=== PATIENT | female | born 1945 | race Caucasian/White ===

== ENCOUNTER 2018-10-15 13:42 | Inpatient (IN) | payer MEDICARE, MEDICAID ==
[2018-10-15] MEDS ORDERED: DICLOFENAC SODIUM TOP PRN (20:53)
[2018-10-15] MEDS ORDERED: Milk Of Magnesia 30 ML UDCUP PO PRN (20:53)
[2018-10-15] MEDS: Gemfibrozil 600 MG TAB PO SCH (21:48)
[2018-10-15] MEDS: Lidocaine Patch Removal 1 EACH TOP SCH (21:49)
[2018-10-15] MEDS: metFORMIN 500 MG TAB PO SCH (21:49)
[2018-10-15] MEDS: Montelukast Sodium 10 mg Tablet PO SCH (21:50)
[2018-10-15] MEDS: Ventolin HFA Inhaler 60 PUFF INHALER INH SCH (21:50)
[2018-10-15] MEDS: Docusate 100 MG CAP PO SCH (21:50)
[2018-10-15] MEDS: HYDROcodone/Acetaminophen 7.5/325 mg Tablet PO SCH (21:52)
[2018-10-15] MEDS: Nicotine 21 MG PATCH TD SCH (22:00)
[2018-10-15] MEDS: Temazepam 15 MG CAP PO SCH (22:54)
[2018-10-16] MEDS: Lidocaine 5% Patch TD SCH (08:24)
[2018-10-16] MEDS: Gemfibrozil 600 MG TAB PO SCH ×2 (08:25→20:19)
[2018-10-16] MEDS: HYDROcodone/Acetaminophen 7.5/325 mg Tablet PO SCH ×2 (08:25→20:22)
[2018-10-16] MEDS: metFORMIN 500 MG TAB PO SCH ×2 (08:25→20:21)
[2018-10-16] MEDS: Furosemide 20 MG TAB PO SCH (08:25)
[2018-10-16] MEDS: Levothyroxine Sodium 25 MCG TAB PO SCH (08:25)
[2018-10-16] MEDS: Docusate 100 MG CAP PO SCH ×2 (08:25→20:19)
[2018-10-16] MEDS: Potassium Chloride 20 MEQ TAB PO SCH (08:25)
[2018-10-16] MEDS: Ventolin HFA Inhaler 60 PUFF INHALER INH SCH ×4 (08:27→20:23)
[2018-10-16] MEDS ORDERED: Prevnar 13-Val Conj/PF 0.5 ML SYRINGE IM ONE (09:00)
[2018-10-16] MEDS ORDERED: Bisacodyl 10 MG SUPP PR PRN (12:00)
[2018-10-16] MEDS: Ondansetron ODT 4 MG TAB PO PRN (12:08)
[2018-10-16] MEDS: Lidocaine Patch Removal 1 EACH TOP SCH (20:21)
[2018-10-16] MEDS: Montelukast Sodium 10 mg Tablet PO SCH (20:22)
[2018-10-16] MEDS: Temazepam 15 MG CAP PO SCH (20:29)
[2018-10-16] MEDS: Nicotine 21 MG PATCH TD SCH (20:29)
--- NOTE | 2018-10-17 02:13 | HP ---
PRIMARY CARE PHYSICIAN: Out of town. REASON FOR ADMISSION: For skilled rehabilitation at [facility] secondary to gait instability, status post left superior and inferior pubic rami fracture. HISTORY OF PRESENT ILLNESS: Ms. Cano is a 73-year-old very pleasant female who presented to [facility] in [place] on October 12 due to a fall coming out of a trailer. Since then, the patient had complained of left hip pain with a pain scale of 10/10, nonradiating and worse with movement. The patient had left hip x-rays, which did not show any fracture or dislocation. She had x-ray of spine, which did not show any fracture or old subluxation. The patient subsequently had a CT of the pelvis and that confirmed fractures to the left superior and inferior pubic rami. The patient was subsequently evaluated by orthopedic surgeon, Dr. Arora, who confirmed the nondisplaced fractures of the superior and inferior pubic rami. He states the fractures were stable and did not require surgery. The patient was evaluated by Physical Therapy and the decision was made to continue physical therapy, and the patient was subsequently discharged to [facility] for continuation of this. Upon evaluation of the patient today, she complains of pain. She states the pain is well controlled by the tramadol, the hydrocodone, and the Tylenol No. 3. The patient complains of constipation and states she has not had a bowel movement since she has been in the hospital since the . She complains of being very nauseous today. She denied any fevers and also she denies any recent falls. The patient was able to participate in therapy and tolerated this okay. PAST MEDICAL HISTORY: Hypertension, diabetes, and hypothyroidism. PAST SURGICAL HISTORY: Left hip replacement in the . SOCIAL HISTORY: Smokes two packs of cigarettes per day. Denies alcohol or illicit drug use. CODE STATUS: The patient is a DNAR. ALLERGIES: NO KNOWN DRUG ALLERGIES. MEDICATIONS: 1. Tramadol 50 to 100 q.6 p.r.n. 2. Dulcolax 10 mg daily. 3. Colace 100 mg b.i.d. 4. Nicotine patch 21 mg daily. 5. Milk of magnesia 30 mL daily. 6. Lidoderm patch 5% patch daily. 7. Metformin 500 b.i.d. 8. Levothyroxine 25 mcg. 9. [place] 1 to 2 tabs daily. 10. Lasix 20 mg daily. 11. Xanax 0.5 b.i.d. 12. ProAir 2 puffs 4 times a day as needed. 13. Montelukast 10 mg at bedtime. 14. Potassium chloride 20 mEq daily. 15. Vistaril 50 mg at bedtime. 16. Omeprazole 40 mg daily. REVIEW OF SYSTEMS: GENERAL: Complains of pain to the hip. Denies any fever or chills. Complains of nausea. Complains of constipation. HEENT: No nosebleeds, oral pain, vision changes, or dysphagia. CHEST: Denies chest pain, shortness of breath, palpitations, or dizziness. RESPIRATORY: Denies cough, shortness of breath, or wheezing. ABDOMEN: Complains of nausea, vomiting, and constipation. GENITOURINARY: Denies dysuria or hematuria. SKIN: Denies blisters. NEUROLOGIC: No focal deficits. PSYCHIATRY: No depression or anxiety. MUSCULOSKELETAL: Complains of gait instability and left hip pain. PHYSICAL EXAMINATION: VITAL SIGNS: Temperature 98.8, pulse 77, respirations 18, O2 on room air 91%, and blood pressure 161/70. GENERAL: Alert, awake, and oriented x3, in mild distress due to pain and nausea. HEENT: Normocephalic and atraumatic. PERRL. Anicteric sclerae. Oral mucous membranes are moist. NECK: Supple. No JVD. Trachea is midline. RESPIRATORY: Clear to auscultation bilaterally. HEART : S1 and S2 heard. No murmurs heard. Pulses palpable. No carotid bruits. No pericardial rub. ABDOMEN: Positive bowel sounds. Soft, nontender, and nondistended. NEUROLOGIC: Cranial nerves 2 through 12 are grossly intact. MUSCULOSKELETAL: Limited range of movements of the left hip secondary to pain. Tenderness over the left hip. No bruising, redness, or swelling. SKIN: No rashes or subcutaneous nodules. PSYCHIATRIC: Normal mood and affect. Alert and oriented to person, place, and time. ASSESSMENT: 1. Gait instability. 2. Status post left superior and inferior pubic rami fracture. 3. Diabetes type 2. 4. Constipation. 5. Nausea. 6. Acute pain. 7. Hypothyroidism. PLAN: The patient has been admitted to [facility] for skilled rehabilitation and gait strengthening. We will consult Physical Therapy for strengthening in order to gain modified independence with gait and Occupational Therapy to help with activities of daily living. The patient is to follow up with orthopedic doctor in a month. We will manage her pain with [place] b.i.d. and tramadol as needed. We will control her anxiety with the home medication, Xanax. We will place patient on stool softener p.r.n. and Colace twice a day. We will restart all patient's home medications. We will place patient on Pepcid b.i.d. for GI prophylaxis. We will place patient on Accu-Cheks a.m. We will place patient on fall precautions. ESTIMATED LENGTH OF STAY: Two to three weeks. DISPOSITION: Home. Job ID: [id number] MTDD
[2018-10-17] MEDS: Furosemide 20 MG TAB PO SCH (08:12)
[2018-10-17] MEDS: Gemfibrozil 600 MG TAB PO SCH ×2 (08:13→20:04)
[2018-10-17] MEDS: HYDROcodone/Acetaminophen 7.5/325 mg Tablet PO SCH ×2 (08:13→20:14)
[2018-10-17] MEDS: Potassium Chloride 20 MEQ TAB PO SCH (08:13)
[2018-10-17] MEDS: metFORMIN 500 MG TAB PO SCH ×2 (08:13→20:04)
[2018-10-17] MEDS: Docusate 100 MG CAP PO SCH ×2 (08:13→20:04)
[2018-10-17] MEDS: Levothyroxine Sodium 25 MCG TAB PO SCH (08:13)
[2018-10-17] MEDS: Lidocaine 5% Patch TD SCH (08:13)
[2018-10-17] MEDS: Ventolin HFA Inhaler 60 PUFF INHALER INH SCH ×4 (08:14→20:16)
[2018-10-17] MEDS: Enoxaparin Sodium 30 MG/0.3 ML SYRINGE SC SCH (08:14)
[2018-10-17] MEDS: traMADol HCl 50 MG TAB PO PRN (13:23)
[2018-10-17] MEDS ORDERED: Nicotine 21 MG PATCH TD SCH (13:45)
[2018-10-17] MEDS: Montelukast Sodium 10 mg Tablet PO SCH (20:04)
[2018-10-17] MEDS: Temazepam 15 MG CAP PO SCH (20:04)
[2018-10-17] MEDS: Nicotine 21 MG PATCH TD SCH (20:13)
[2018-10-17] MEDS: Lidocaine Patch Removal 1 EACH TOP SCH (20:13)
[2018-10-17] MEDS: ALPRAZolam 0.5 MG TAB PO PRN (20:20)
[2018-10-18] MEDS: traMADol HCl 50 MG TAB PO PRN ×2 (01:36→16:47)
[2018-10-18] MEDS: HYDROcodone/Acetaminophen 7.5/325 mg Tablet PO SCH ×2 (08:35→20:06)
[2018-10-18] MEDS: Ondansetron ODT 4 MG TAB PO PRN ×2 (08:38→19:27)
[2018-10-18] MEDS: Lidocaine 5% Patch TD SCH (08:39)
[2018-10-18] MEDS: Potassium Chloride 20 MEQ TAB PO SCH (08:39)
[2018-10-18] MEDS: Levothyroxine Sodium 25 MCG TAB PO SCH (08:39)
[2018-10-18] MEDS: Gemfibrozil 600 MG TAB PO SCH ×2 (08:39→20:06)
[2018-10-18] MEDS: Enoxaparin Sodium 30 MG/0.3 ML SYRINGE SC SCH (08:39)
[2018-10-18] MEDS: Furosemide 20 MG TAB PO SCH (08:39)
[2018-10-18] MEDS: metFORMIN 500 MG TAB PO SCH ×2 (08:39→20:08)
[2018-10-18] MEDS: Docusate 100 MG CAP PO SCH ×2 (08:39→20:06)
[2018-10-18] MEDS: Ventolin HFA Inhaler 60 PUFF INHALER INH SCH ×4 (08:40→20:09)
[2018-10-18] MEDS: Temazepam 15 MG CAP PO SCH (20:08)
[2018-10-18] MEDS: Montelukast Sodium 10 mg Tablet PO SCH (20:08)
[2018-10-18] MEDS: Nicotine 21 MG PATCH TD SCH (20:08)
[2018-10-18] MEDS: Lidocaine Patch Removal 1 EACH TOP SCH (20:13)
[2018-10-19] MEDS: traMADol HCl 50 MG TAB PO PRN (05:46)
[2018-10-19] MEDS: Docusate 100 MG CAP PO SCH ×2 (08:33→20:03)
[2018-10-19] MEDS: Furosemide 20 MG TAB PO SCH (08:33)
[2018-10-19] MEDS: Enoxaparin Sodium 30 MG/0.3 ML SYRINGE SC SCH (08:33)
[2018-10-19] MEDS: Gemfibrozil 600 MG TAB PO SCH ×2 (08:34→20:03)
[2018-10-19] MEDS: HYDROcodone/Acetaminophen 7.5/325 mg Tablet PO SCH ×2 (08:34→20:03)
[2018-10-19] MEDS: Lidocaine 5% Patch TD SCH (08:35)
[2018-10-19] MEDS: Levothyroxine Sodium 25 MCG TAB PO SCH (08:35)
[2018-10-19] MEDS: metFORMIN 500 MG TAB PO SCH ×2 (08:35→20:04)
[2018-10-19] MEDS: Potassium Chloride 20 MEQ TAB PO SCH (08:36)
[2018-10-19] MEDS: Ventolin HFA Inhaler 60 PUFF INHALER INH SCH ×4 (08:37→20:05)
[2018-10-19] MEDS: Montelukast Sodium 10 mg Tablet PO SCH (20:04)
[2018-10-19] MEDS: Lidocaine Patch Removal 1 EACH TOP SCH (20:04)
[2018-10-19] MEDS: Senokot S 8.6-50 MG TAB PO PRN (20:05)
[2018-10-19] MEDS: Nicotine 21 MG PATCH TD SCH (20:05)
[2018-10-19] MEDS: Temazepam 15 MG CAP PO SCH (20:05)
[2018-10-20] MEDS: traMADol HCl 50 MG TAB PO PRN ×2 (04:07→13:21)
[2018-10-20] MEDS: Lidocaine 5% Patch TD SCH (08:51)
[2018-10-20] MEDS: HYDROcodone/Acetaminophen 7.5/325 mg Tablet PO SCH ×2 (08:51→20:02)
[2018-10-20] MEDS: Potassium Chloride 20 MEQ TAB PO SCH (08:54)
[2018-10-20] MEDS: Furosemide 20 MG TAB PO SCH (08:54)
[2018-10-20] MEDS: Bisacodyl 5 MG TAB PO PRN (08:54)
[2018-10-20] MEDS: metFORMIN 500 MG TAB PO SCH ×2 (08:54→20:01)
[2018-10-20] MEDS: Docusate 100 MG CAP PO SCH ×2 (08:54→20:00)
[2018-10-20] MEDS: Gemfibrozil 600 MG TAB PO SCH ×2 (08:54→20:01)
[2018-10-20] MEDS: Levothyroxine Sodium 25 MCG TAB PO SCH (08:54)
[2018-10-20] MEDS: Enoxaparin Sodium 30 MG/0.3 ML SYRINGE SC SCH (08:54)
[2018-10-20] MEDS: Ventolin HFA Inhaler 60 PUFF INHALER INH SCH ×4 (08:55→20:03)
[2018-10-20] MEDS: Montelukast Sodium 10 mg Tablet PO SCH (20:00)
[2018-10-20] MEDS: Nicotine 21 MG PATCH TD SCH (20:00)
[2018-10-20] MEDS: Temazepam 15 MG CAP PO SCH (20:02)
[2018-10-20] MEDS: Lidocaine Patch Removal 1 EACH TOP SCH (20:03)
[2018-10-21] MEDS: traMADol HCl 50 MG TAB PO PRN ×2 (02:04→10:54)
[2018-10-21] MEDS: Docusate 100 MG CAP PO SCH ×2 (08:16→20:39)
[2018-10-21] MEDS: Enoxaparin Sodium 30 MG/0.3 ML SYRINGE SC SCH (08:16)
[2018-10-21] MEDS: Potassium Chloride 20 MEQ TAB PO SCH (08:16)
[2018-10-21] MEDS: Bisacodyl 5 MG TAB PO PRN (08:17)
[2018-10-21] MEDS: Furosemide 20 MG TAB PO SCH (08:17)
[2018-10-21] MEDS: metFORMIN 500 MG TAB PO SCH ×2 (08:17→20:39)
[2018-10-21] MEDS: Levothyroxine Sodium 25 MCG TAB PO SCH (08:17)
[2018-10-21] MEDS: Lidocaine 5% Patch TD SCH (08:17)
[2018-10-21] MEDS: Gemfibrozil 600 MG TAB PO SCH ×2 (08:17→20:39)
[2018-10-21] MEDS: Ventolin HFA Inhaler 60 PUFF INHALER INH SCH ×4 (08:18→20:41)
[2018-10-21] MEDS: HYDROcodone/Acetaminophen 7.5/325 mg Tablet PO SCH (08:24)
[2018-10-21] MEDS: Nicotine 21 MG PATCH TD SCH (20:38)
[2018-10-21] MEDS: Temazepam 15 MG CAP PO SCH (20:39)
[2018-10-21] MEDS: HYDROcodone/Acetaminophen 10/325 mg Tablet PO SCH (20:40)
[2018-10-21] MEDS: Montelukast Sodium 10 mg Tablet PO SCH (20:40)
[2018-10-21] MEDS: Lidocaine Patch Removal 1 EACH TOP SCH (20:41)
[2018-10-22] MEDS: traMADol HCl 50 MG TAB PO PRN (03:33)
[2018-10-22] MEDS: Gemfibrozil 600 MG TAB PO SCH ×2 (08:09→19:59)
[2018-10-22] MEDS: HYDROcodone/Acetaminophen 10/325 mg Tablet PO SCH ×2 (08:09→19:59)
[2018-10-22] MEDS: metFORMIN 500 MG TAB PO SCH ×2 (08:09→19:59)
[2018-10-22] MEDS: Furosemide 20 MG TAB PO SCH (08:09)
[2018-10-22] MEDS: Docusate 100 MG CAP PO SCH ×2 (08:09→19:59)
[2018-10-22] MEDS: Levothyroxine Sodium 25 MCG TAB PO SCH (08:10)
[2018-10-22] MEDS: Enoxaparin Sodium 30 MG/0.3 ML SYRINGE SC SCH (08:10)
[2018-10-22] MEDS: Ventolin HFA Inhaler 60 PUFF INHALER INH SCH ×4 (08:10→20:01)
[2018-10-22] MEDS: Lidocaine 5% Patch TD SCH (08:10)
[2018-10-22] MEDS: Potassium Chloride 20 MEQ TAB PO SCH (08:10)
[2018-10-22] MEDS: Temazepam 15 MG CAP PO SCH (19:59)
[2018-10-22] MEDS: Nicotine 21 MG PATCH TD SCH (19:59)
[2018-10-22] MEDS: Lidocaine Patch Removal 1 EACH TOP SCH (20:00)
[2018-10-22] MEDS: Montelukast Sodium 10 mg Tablet PO SCH (20:00)
[2018-10-23] MEDS: traMADol HCl 50 MG TAB PO PRN ×2 (04:00→13:25)
[2018-10-23] MEDS: Ventolin HFA Inhaler 60 PUFF INHALER INH SCH ×4 (08:45→20:11)
[2018-10-23] MEDS: Potassium Chloride 20 MEQ TAB PO SCH (08:46)
[2018-10-23] MEDS: Furosemide 20 MG TAB PO SCH (08:46)
[2018-10-23] MEDS: Docusate 100 MG CAP PO SCH ×2 (08:46→20:13)
[2018-10-23] MEDS: Senokot S 8.6-50 MG TAB PO PRN (08:46)
[2018-10-23] MEDS: HYDROcodone/Acetaminophen 10/325 mg Tablet PO SCH ×2 (08:46→20:14)
[2018-10-23] MEDS: Gemfibrozil 600 MG TAB PO SCH ×2 (08:47→20:14)
[2018-10-23] MEDS: Levothyroxine Sodium 25 MCG TAB PO SCH (08:47)
[2018-10-23] MEDS: Lidocaine 5% Patch TD SCH (08:48)
[2018-10-23] MEDS: Enoxaparin Sodium 30 MG/0.3 ML SYRINGE SC SCH (08:51)
[2018-10-23] MEDS: metFORMIN 500 MG TAB PO SCH ×2 (08:52→20:14)
[2018-10-23] MEDS: Montelukast Sodium 10 mg Tablet PO SCH (20:14)
[2018-10-23] MEDS: Temazepam 15 MG CAP PO SCH (20:14)
[2018-10-23] MEDS: Nicotine 21 MG PATCH TD SCH (20:20)
[2018-10-23] MEDS: Lidocaine Patch Removal 1 EACH TOP SCH (20:20)
[2018-10-24] MEDS: Ventolin HFA Inhaler 60 PUFF INHALER INH SCH ×4 (08:07→20:04)
[2018-10-24] MEDS: Docusate 100 MG CAP PO SCH ×2 (08:07→20:06)
[2018-10-24] MEDS: Potassium Chloride 20 MEQ TAB PO SCH (08:08)
[2018-10-24] MEDS: metFORMIN 500 MG TAB PO SCH ×2 (08:08→20:06)
[2018-10-24] MEDS: HYDROcodone/Acetaminophen 10/325 mg Tablet PO SCH ×2 (08:08→20:08)
[2018-10-24] MEDS: Gemfibrozil 600 MG TAB PO SCH ×2 (08:08→20:06)
[2018-10-24] MEDS: Levothyroxine Sodium 25 MCG TAB PO SCH (08:08)
[2018-10-24] MEDS: Furosemide 20 MG TAB PO SCH (08:08)
[2018-10-24] MEDS: Lidocaine 5% Patch TD SCH (08:09)
[2018-10-24] MEDS: Enoxaparin Sodium 30 MG/0.3 ML SYRINGE SC SCH (08:09)
[2018-10-24] MEDS ORDERED: CONFIRM ALL DAY 1 DOSES ARE TIMED FOR DAY 1 FS SCH (09:15)
[2018-10-24 09:56] LABS: ALT (SGPT) 7 U/L (8-55); AST (SGOT) 12 U/L (5-34); Albumin 3.6 g/dL (3.4-4.8); Alkaline Phosphatase 104 U/L (40-150); Anion Gap 13 mmol/L (10-20); BUN (Urea Nitrogen) 6 mg/dL (9.8-20.1); Bilirubin, Total 0.4 mg/dL (0.2-1.2); Calc. Creatinine Clearance 85 mL/min (70-130); Calcium 9.9 mg/dL (7.8-10.44); Carbon Dioxide 26 mmol/L (23-31); Chloride 97 mmol/L (98-107); Estimated GFR-MDRD Greater than 90; Globulin 3.9 g/dL (2.4-3.5); Glucose 122 mg/dL (83-110); Potassium 3.5 mmol/L (3.5-5.1); Protein, Total 7.5 g/dL (6.0-8.3); Sodium 132 mmol/L (136-145); Uric Acid 4.5 mg/dL (2.6-6.0)
[2018-10-24] MEDS: methylPREDNISolone 4 mg Tablet PO SCH ×4 (10:08→20:06)
[2018-10-24 10:16] LABS: #Basophils 0.1 thou/uL (0.0-0.2); #Eosinphils 0.1 thou/uL (0.0-0.7); #Lymphocytes 1.4 thou/uL (1.20-3.40); #Monocytes 0.9 thou/uL (0.11-0.59); #Neutrophils 5.9 thou/uL (1.40-6.50); %Basophils 1.5 % (0.0-1.0); %Eosinophils 0.8 % (0.0-10.0); %Lymphocytes 16.3 % (21.0-51.0); %Monocytes 10.9 % (0.0-10.0); %Neutrophils 70.6 % (42.0-75.0); Anisocytosis SLIGHT = 6-15 cells (100X) (0-5/hpf); Hemoglobin 9.6 g/dL (12.0-16.0); MDiff Complete? YES; Mean Corpuscular HGB CONC 32.1 g/dL (32.0-36.0); Mean Corpuscular Hemoglobin 29.6 pg (27.0-31.0); Mean Corpuscular Volume 92.3 fL (78.0-98.0); Mean Platelet Volume 5.8 fL (7.4-10.4); Platelet Count 504 thou/uL (130-400); RBC Distribution Width 20.3 % (11.5-14.5); Red Blood Cell (RBC) Count 3.24 mill/uL (4.20-5.40); White Blood Cell (WBC) Count 8.4 thou/uL (4.8-10.8)
[2018-10-24] MEDS: traMADol HCl 50 MG TAB PO PRN (12:07)
--- NOTE | 2018-10-24 14:39 | RAD ---
RIGHT ANKLE THREE VIEWS: HISTORY: Red, swollen, painful right ankle and foot. FINDINGS: There is generalized soft tissue swelling. There is very severe arthrosis with deformity and flatteni ng of the talar dome, as well as the subarticular region of the distal tibia, evidence for longstandi ng arthrosis and resultant deformity. This certainly may be evidence for prior trauma. No evidence for acute fracture or dislocation. Subtalar joints appear intact. IMPRESSION: 1. 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 2. No acute fracture or dislocation. POS: Jose
[2018-10-24] MEDS: Nicotine 21 MG PATCH TD SCH (20:03)
[2018-10-24] MEDS: Montelukast Sodium 10 mg Tablet PO SCH (20:06)
[2018-10-24] MEDS: Temazepam 15 MG CAP PO SCH (20:07)
[2018-10-24] MEDS: Lidocaine Patch Removal 1 EACH TOP SCH (20:12)
[2018-10-25] MEDS: HYDROcodone/Acetaminophen 10/325 mg Tablet PO SCH ×2 (08:29→21:02)
[2018-10-25] MEDS: Docusate 100 MG CAP PO SCH ×2 (08:29→21:02)
[2018-10-25] MEDS: Levothyroxine Sodium 25 MCG TAB PO SCH (08:30)
[2018-10-25] MEDS: Gemfibrozil 600 MG TAB PO SCH ×2 (08:30→21:02)
[2018-10-25] MEDS: Potassium Chloride 20 MEQ TAB PO SCH (08:30)
[2018-10-25] MEDS: methylPREDNISolone 4 mg Tablet PO SCH ×3 (08:30→17:10)
[2018-10-25] MEDS: metFORMIN 500 MG TAB PO SCH ×2 (08:30→21:03)
[2018-10-25] MEDS: Furosemide 20 MG TAB PO SCH (08:30)
[2018-10-25] MEDS: Lidocaine 5% Patch TD SCH (08:31)
[2018-10-25] MEDS: Ventolin HFA Inhaler 60 PUFF INHALER INH SCH ×4 (08:31→21:05)
[2018-10-25] MEDS: Enoxaparin Sodium 30 MG/0.3 ML SYRINGE SC SCH (08:34)
[2018-10-25] MEDS: traMADol HCl 50 MG TAB PO PRN (13:15)
[2018-10-25] MEDS ORDERED: methylPREDNISolone 4 mg Tablet PO SCH (21:00)
[2018-10-25] MEDS: Nicotine 21 MG PATCH TD SCH (21:01)
[2018-10-25] MEDS: Lidocaine Patch Removal 1 EACH TOP SCH (21:03)
[2018-10-25] MEDS: Montelukast Sodium 10 mg Tablet PO SCH (21:04)
[2018-10-25] MEDS: Temazepam 15 MG CAP PO SCH (21:05)
[2018-10-26] MEDS: metFORMIN 500 MG TAB PO SCH ×2 (08:15→21:08)
[2018-10-26] MEDS: Potassium Chloride 20 MEQ TAB PO SCH (08:16)
[2018-10-26] MEDS: Enoxaparin Sodium 30 MG/0.3 ML SYRINGE SC SCH (08:16)
[2018-10-26] MEDS: methylPREDNISolone 4 mg Tablet PO SCH ×4 (08:16→21:08)
[2018-10-26] MEDS: Levothyroxine Sodium 25 MCG TAB PO SCH (08:16)
[2018-10-26] MEDS: Docusate 100 MG CAP PO SCH ×2 (08:16→21:06)
[2018-10-26] MEDS: Furosemide 20 MG TAB PO SCH (08:16)
[2018-10-26] MEDS: HYDROcodone/Acetaminophen 10/325 mg Tablet PO SCH ×2 (08:17→21:07)
[2018-10-26] MEDS: Gemfibrozil 600 MG TAB PO SCH ×2 (08:17→21:06)
[2018-10-26] MEDS: Lidocaine 5% Patch TD SCH (08:18)
[2018-10-26] MEDS: Ventolin HFA Inhaler 60 PUFF INHALER INH SCH ×4 (08:18→21:09)
[2018-10-26] MEDS: Nicotine 21 MG PATCH TD SCH (21:05)
[2018-10-26] MEDS: Temazepam 15 MG CAP PO SCH (21:08)
[2018-10-26] MEDS: Montelukast Sodium 10 mg Tablet PO SCH (21:08)
[2018-10-26] MEDS: Lidocaine Patch Removal 1 EACH TOP SCH (21:08)
[2018-10-27] MEDS: Potassium Chloride 20 MEQ TAB PO SCH (08:25)
[2018-10-27] MEDS: Furosemide 20 MG TAB PO SCH (08:25)
[2018-10-27] MEDS: Gemfibrozil 600 MG TAB PO SCH ×2 (08:25→20:57)
[2018-10-27] MEDS: HYDROcodone/Acetaminophen 10/325 mg Tablet PO SCH ×2 (08:25→20:57)
[2018-10-27] MEDS: metFORMIN 500 MG TAB PO SCH ×2 (08:26→20:56)
[2018-10-27] MEDS: Lidocaine 5% Patch TD SCH (08:26)
[2018-10-27] MEDS: methylPREDNISolone 4 mg Tablet PO SCH ×3 (08:26→17:06)
[2018-10-27] MEDS: Levothyroxine Sodium 25 MCG TAB PO SCH (08:26)
[2018-10-27] MEDS: Enoxaparin Sodium 30 MG/0.3 ML SYRINGE SC SCH (08:26)
[2018-10-27] MEDS: Ventolin HFA Inhaler 60 PUFF INHALER INH SCH ×4 (08:27→21:03)
[2018-10-27] MEDS: Docusate 100 MG CAP PO SCH ×2 (08:27→20:56)
[2018-10-27] MEDS: traMADol HCl 50 MG TAB PO PRN (19:29)
[2018-10-27] MEDS: Montelukast Sodium 10 mg Tablet PO SCH (20:58)
[2018-10-27] MEDS: Nicotine 21 MG PATCH TD SCH (20:59)
[2018-10-27] MEDS: Lidocaine Patch Removal 1 EACH TOP SCH (20:59)
[2018-10-27] MEDS: Temazepam 15 MG CAP PO SCH (21:03)
[2018-10-28] MEDS: traMADol HCl 50 MG TAB PO PRN ×3 (03:02→17:32)
[2018-10-28] MEDS: HYDROcodone/Acetaminophen 10/325 mg Tablet PO SCH ×2 (08:27→19:59)
[2018-10-28] MEDS: Docusate 100 MG CAP PO SCH ×2 (08:27→20:00)
[2018-10-28] MEDS: methylPREDNISolone 4 mg Tablet PO SCH ×2 (08:27→17:29)
[2018-10-28] MEDS: Levothyroxine Sodium 25 MCG TAB PO SCH (08:27)
[2018-10-28] MEDS: metFORMIN 500 MG TAB PO SCH ×2 (08:28→20:00)
[2018-10-28] MEDS: Furosemide 20 MG TAB PO SCH (08:28)
[2018-10-28] MEDS: Gemfibrozil 600 MG TAB PO SCH ×2 (08:28→20:00)
[2018-10-28] MEDS: Enoxaparin Sodium 30 MG/0.3 ML SYRINGE SC SCH (08:28)
[2018-10-28] MEDS: Ventolin HFA Inhaler 60 PUFF INHALER INH SCH ×4 (08:28→20:01)
[2018-10-28] MEDS: Potassium Chloride 20 MEQ TAB PO SCH (08:28)
[2018-10-28] MEDS: Lidocaine 5% Patch TD SCH (08:29)
[2018-10-28 13:05] LABS: #Basophils 0.2 thou/uL (0.0-0.2); #Eosinphils 0.2 thou/uL (0.0-0.7); #Monocytes 1.1 thou/uL (0.11-0.59); #Neutrophils 4.9 thou/uL (1.40-6.50); %Basophils 1.7 % (0.0-1.0); %Eosinophils 2.3 % (0.0-10.0); %Lymphocytes 32.3 % (21.0-51.0); %Monocytes 11.8 % (0.0-10.0); %Neutrophils 51.9 % (42.0-75.0); Anisocytosis SLIGHT = 6-15 cells (100X) (0-5/hpf); Hemoglobin 10.3 g/dL (12.0-16.0); MDiff Complete? YES; Mean Corpuscular HGB CONC 31.5 g/dL (32.0-36.0); Mean Corpuscular Hemoglobin 29.2 pg (27.0-31.0); Mean Corpuscular Volume 92.8 fL (78.0-98.0); Mean Platelet Volume 5.5 fL (7.4-10.4); Platelet Count 723 thou/uL (130-400); Polychromasia SLIGHT = 2-3 cells (100X) (0-2/hpf); RBC Distribution Width 20.2 % (11.5-14.5); Red Blood Cell (RBC) Count 3.54 mill/uL (4.20-5.40); White Blood Cell (WBC) Count 9.4 thou/uL (4.8-10.8)
[2018-10-28] MEDS: Temazepam 15 MG CAP PO SCH (19:59)
[2018-10-28] MEDS: Nicotine 21 MG PATCH TD SCH (20:00)
[2018-10-28] MEDS: Montelukast Sodium 10 mg Tablet PO SCH (20:00)
[2018-10-28] MEDS: Lidocaine Patch Removal 1 EACH TOP SCH (20:01)
[2018-10-29] MEDS: traMADol HCl 50 MG TAB PO PRN ×2 (03:33→13:59)
[2018-10-29] MEDS ORDERED: methylPREDNISolone 4 mg Tablet PO SCH (08:00)
[2018-10-29] MEDS: HYDROcodone/Acetaminophen 10/325 mg Tablet PO SCH ×2 (09:02→21:34)
[2018-10-29] MEDS: Docusate 100 MG CAP PO SCH ×2 (09:02→21:33)
[2018-10-29] MEDS: Furosemide 20 MG TAB PO SCH (09:02)
[2018-10-29] MEDS: Gemfibrozil 600 MG TAB PO SCH ×2 (09:02→21:33)
[2018-10-29] MEDS: Levothyroxine Sodium 25 MCG TAB PO SCH (09:03)
[2018-10-29] MEDS: Potassium Chloride 20 MEQ TAB PO SCH (09:03)
[2018-10-29] MEDS: metFORMIN 500 MG TAB PO SCH ×2 (09:03→21:33)
[2018-10-29] MEDS: Lidocaine 5% Patch TD SCH (09:03)
[2018-10-29] MEDS: Ventolin HFA Inhaler 60 PUFF INHALER INH SCH ×4 (09:04→21:32)
[2018-10-29] MEDS: Nicotine 21 MG PATCH TD SCH (21:32)
[2018-10-29] MEDS: Montelukast Sodium 10 mg Tablet PO SCH (21:34)
[2018-10-29] MEDS: Temazepam 15 MG CAP PO SCH (21:35)
[2018-10-29] MEDS: Lidocaine Patch Removal 1 EACH TOP SCH (21:37)
[2018-10-30 05:29] LABS: Anion Gap 11 mmol/L (10-20); BUN (Urea Nitrogen) 10 mg/dL (9.8-20.1); Calc. Creatinine Clearance 89 mL/min (70-130); Calcium 9.1 mg/dL (7.8-10.44); Carbon Dioxide 27 mmol/L (23-31); Chloride 102 mmol/L (98-107); Estimated GFR-MDRD Greater than 90; Glucose 75 mg/dL (83-110); Potassium 4.1 mmol/L (3.5-5.1); Sodium 136 mmol/L (136-145)
[2018-10-30] MEDS: traMADol HCl 50 MG TAB PO PRN (05:41)
[2018-10-30 05:47] LABS: #Basophils 0.2 thou/uL (0.0-0.2); #Eosinphils 0.3 thou/uL (0.0-0.7); #Lymphocytes 3.6 thou/uL (1.20-3.40); #Monocytes 1.2 thou/uL (0.11-0.59); #Neutrophils 3.9 thou/uL (1.40-6.50); %Eosinophils 3.7 % (0.0-10.0); %Lymphocytes 39.3 % (21.0-51.0); %Monocytes 13.3 % (0.0-10.0); %Neutrophils 41.8 % (42.0-75.0); Anisocytosis SLIGHT = 6-15 cells (100X) (0-5/hpf); Hemoglobin 9.7 g/dL (12.0-16.0); Hypochromia MODERATE=16-30 cells (100X) (0-5/hpf); MDiff Complete? YES; Mean Corpuscular HGB CONC 32.4 g/dL (32.0-36.0); Mean Corpuscular Hemoglobin 29.6 pg (27.0-31.0); Mean Corpuscular Volume 91.3 fL (78.0-98.0); Mean Platelet Volume 5.8 fL (7.4-10.4); Microcytosis SLIGHT = 6-15 cells (100X) (0-5/hpf); Platelet Count 584 thou/uL (130-400); Poikilocytosis SLIGHT = 6-15 cells (100X) (0-5/hpf); RBC Distribution Width 20.3 % (11.5-14.5); Red Blood Cell (RBC) Count 3.28 mill/uL (4.20-5.40)
[2018-10-30] MEDS: Docusate 100 MG CAP PO SCH ×2 (08:02→20:50)
[2018-10-30] MEDS: Levothyroxine Sodium 25 MCG TAB PO SCH (08:02)
[2018-10-30] MEDS: Lidocaine 5% Patch TD SCH ×2 (08:02→20:52)
[2018-10-30] MEDS: metFORMIN 500 MG TAB PO SCH ×2 (08:02→20:51)
[2018-10-30] MEDS: HYDROcodone/Acetaminophen 10/325 mg Tablet PO SCH ×2 (08:02→20:49)
[2018-10-30] MEDS: Potassium Chloride 20 MEQ TAB PO SCH (08:03)
[2018-10-30] MEDS: Gemfibrozil 600 MG TAB PO SCH ×2 (08:03→20:48)
[2018-10-30] MEDS: Furosemide 20 MG TAB PO SCH (08:03)
[2018-10-30] MEDS: Ventolin HFA Inhaler 60 PUFF INHALER INH SCH ×4 (08:03→20:44)
[2018-10-30] MEDS: Nicotine 21 MG PATCH TD SCH (20:42)
[2018-10-30] MEDS: Montelukast Sodium 10 mg Tablet PO SCH (20:45)
[2018-10-30] MEDS: Temazepam 15 MG CAP PO SCH (20:48)
[2018-10-31] MEDS: HYDROcodone/Acetaminophen 10/325 mg Tablet PO SCH ×2 (08:04→21:17)
[2018-10-31] MEDS: Potassium Chloride 20 MEQ TAB PO SCH (08:05)
[2018-10-31] MEDS: Gemfibrozil 600 MG TAB PO SCH ×2 (08:05→21:17)
[2018-10-31] MEDS: Levothyroxine Sodium 25 MCG TAB PO SCH (08:05)
[2018-10-31] MEDS: Docusate 100 MG CAP PO SCH ×2 (08:05→21:17)
[2018-10-31] MEDS: Furosemide 20 MG TAB PO SCH (08:05)
[2018-10-31] MEDS: metFORMIN 500 MG TAB PO SCH ×2 (08:05→21:20)
[2018-10-31] MEDS: Ventolin HFA Inhaler 60 PUFF INHALER INH SCH ×4 (08:06→21:18)
[2018-10-31] MEDS: Lidocaine Patch Removal 1 EACH TOP SCH (08:06)
[2018-10-31] MEDS: traMADol HCl 50 MG TAB PO PRN (13:45)
[2018-10-31] MEDS: Nicotine 21 MG PATCH TD SCH (21:19)
[2018-10-31] MEDS: Montelukast Sodium 10 mg Tablet PO SCH (21:20)
[2018-10-31] MEDS: Temazepam 15 MG CAP PO SCH (21:20)
[2018-10-31] MEDS: Lidocaine 5% Patch TD SCH (21:21)
[2018-11-01] MEDS: HYDROcodone/Acetaminophen 10/325 mg Tablet PO SCH ×2 (08:07→20:13)
[2018-11-01] MEDS: Docusate 100 MG CAP PO SCH ×2 (08:07→20:15)
[2018-11-01] MEDS: Gemfibrozil 600 MG TAB PO SCH ×2 (08:07→20:15)
[2018-11-01] MEDS: Furosemide 20 MG TAB PO SCH (08:07)
[2018-11-01] MEDS: Lidocaine Patch Removal 1 EACH TOP SCH (08:08)
[2018-11-01] MEDS: metFORMIN 500 MG TAB PO SCH ×2 (08:08→20:15)
[2018-11-01] MEDS: Potassium Chloride 20 MEQ TAB PO SCH (08:08)
[2018-11-01] MEDS: Levothyroxine Sodium 25 MCG TAB PO SCH (08:08)
[2018-11-01] MEDS: Ventolin HFA Inhaler 60 PUFF INHALER INH SCH ×4 (08:09→20:16)
[2018-11-01] MEDS ORDERED: Lisinopril 5 MG TAB PO SCH (11:00)
[2018-11-01 12:58] LABS: #Basophils 0.1 thou/uL (0.0-0.2); #Eosinphils 0.1 thou/uL (0.0-0.7); #Lymphocytes 2.5 thou/uL (1.20-3.40); #Monocytes 1.2 thou/uL (0.11-0.59); #Neutrophils 4.9 thou/uL (1.40-6.50); %Basophils 1.3 % (0.0-1.0); %Eosinophils 1.3 % (0.0-10.0); %Lymphocytes 28.4 % (21.0-51.0); %Monocytes 13.9 % (0.0-10.0); %Neutrophils 55.2 % (42.0-75.0); Anisocytosis SLIGHT = 6-15 cells (100X) (0-5/hpf); Hemoglobin 10.6 g/dL (12.0-16.0); Hypochromia SLIGHT = 6-15 cells (100X) (0-5/hpf); MDiff Complete? YES; Mean Corpuscular HGB CONC 32.1 g/dL (32.0-36.0); Mean Corpuscular Hemoglobin 29.6 pg (27.0-31.0); Mean Corpuscular Volume 92.3 fL (78.0-98.0); Mean Platelet Volume 6.1 fL (7.4-10.4); Platelet Count 533 thou/uL (130-400); Platelet Morphology Comment Appears Increased; RBC Distribution Width 20.4 % (11.5-14.5); Red Blood Cell (RBC) Count 3.57 mill/uL (4.20-5.40); Rouleaux Formation SLIGHT = 1-5 cells (100X) (None Seen); White Blood Cell (WBC) Count 8.8 thou/uL (4.8-10.8)
[2018-11-01] MEDS: traMADol HCl 50 MG TAB PO PRN (17:43)
[2018-11-01] MEDS ORDERED: ALPRAZolam 0.5 MG TAB ONE (20:12)
[2018-11-01] MEDS: Temazepam 15 MG CAP PO SCH (20:13)
[2018-11-01] MEDS: Lidocaine 5% Patch TD SCH (20:14)
[2018-11-01] MEDS: Montelukast Sodium 10 mg Tablet PO SCH (20:15)
[2018-11-01] MEDS: Nicotine 21 MG PATCH TD SCH (20:15)
[2018-11-02] MEDS: HYDROcodone/Acetaminophen 10/325 mg Tablet PO SCH ×2 (08:08→20:07)
[2018-11-02] MEDS: Potassium Chloride 20 MEQ TAB PO SCH (08:08)
[2018-11-02] MEDS: Docusate 100 MG CAP PO SCH ×2 (08:09→20:08)
[2018-11-02] MEDS: metFORMIN 500 MG TAB PO SCH ×2 (08:09→20:08)
[2018-11-02] MEDS: Lisinopril 5 MG TAB PO SCH (08:09)
[2018-11-02] MEDS: Gemfibrozil 600 MG TAB PO SCH ×2 (08:09→20:09)
[2018-11-02] MEDS: Furosemide 20 MG TAB PO SCH (08:09)
[2018-11-02] MEDS: Levothyroxine Sodium 25 MCG TAB PO SCH (08:09)
[2018-11-02] MEDS: Ventolin HFA Inhaler 60 PUFF INHALER INH SCH ×4 (08:11→20:09)
[2018-11-02] MEDS: Lidocaine Patch Removal 1 EACH TOP SCH (08:11)
[2018-11-02] MEDS: traMADol HCl 50 MG TAB PO PRN (13:10)
[2018-11-02] MEDS: Temazepam 15 MG CAP PO SCH (20:07)
[2018-11-02] MEDS: ALPRAZolam 0.5 MG TAB PO PRN (20:07)
[2018-11-02] MEDS: Montelukast Sodium 10 mg Tablet PO SCH (20:08)
[2018-11-02] MEDS: Nicotine 21 MG PATCH TD SCH (20:08)
[2018-11-02] MEDS: Lidocaine 5% Patch TD SCH (20:08)
[2018-11-03] MEDS: HYDROcodone/Acetaminophen 10/325 mg Tablet PO SCH ×2 (09:19→19:59)
[2018-11-03] MEDS: Levothyroxine Sodium 25 MCG TAB PO SCH (09:21)
[2018-11-03] MEDS: Potassium Chloride 20 MEQ TAB PO SCH (09:21)
[2018-11-03] MEDS: Lisinopril 5 MG TAB PO SCH (09:21)
[2018-11-03] MEDS: Gemfibrozil 600 MG TAB PO SCH ×2 (09:21→20:03)
[2018-11-03] MEDS: Ventolin HFA Inhaler 60 PUFF INHALER INH SCH ×4 (09:22→20:02)
[2018-11-03] MEDS: Docusate 100 MG CAP PO SCH ×2 (09:22→20:03)
[2018-11-03] MEDS: Lidocaine Patch Removal 1 EACH TOP SCH (09:22)
[2018-11-03] MEDS: metFORMIN 500 MG TAB PO SCH ×2 (09:22→20:03)
[2018-11-03] MEDS: Furosemide 20 MG TAB PO SCH (09:22)
[2018-11-03] MEDS: traMADol HCl 50 MG TAB PO PRN (13:01)
[2018-11-03] MEDS: Temazepam 15 MG CAP PO SCH (19:59)
[2018-11-03] MEDS: Nicotine 21 MG PATCH TD SCH (20:00)
[2018-11-03] MEDS: Lidocaine 5% Patch TD SCH (20:01)
[2018-11-03] MEDS: Montelukast Sodium 10 mg Tablet PO SCH (20:03)
[2018-11-03] MEDS: ALPRAZolam 0.5 MG TAB PO PRN (20:04)
[2018-11-04] MEDS: HYDROcodone/Acetaminophen 10/325 mg Tablet PO SCH ×2 (09:42→20:15)
[2018-11-04] MEDS: metFORMIN 500 MG TAB PO SCH ×2 (09:44→20:16)
[2018-11-04] MEDS: Docusate 100 MG CAP PO SCH ×2 (09:44→20:14)
[2018-11-04] MEDS: Gemfibrozil 600 MG TAB PO SCH ×2 (09:44→20:15)
[2018-11-04] MEDS: Lisinopril 5 MG TAB PO SCH (09:44)
[2018-11-04] MEDS: Furosemide 20 MG TAB PO SCH (09:44)
[2018-11-04] MEDS: Levothyroxine Sodium 25 MCG TAB PO SCH (09:45)
[2018-11-04] MEDS: Potassium Chloride 20 MEQ TAB PO SCH (09:45)
[2018-11-04] MEDS: Ventolin HFA Inhaler 60 PUFF INHALER INH SCH ×4 (09:45→20:13)
[2018-11-04] MEDS: Lidocaine Patch Removal 1 EACH TOP SCH (09:45)
[2018-11-04] MEDS: traMADol HCl 50 MG TAB PO PRN (14:13)
[2018-11-04] MEDS: Lidocaine 5% Patch TD SCH (20:12)
[2018-11-04] MEDS: Nicotine 21 MG PATCH TD SCH (20:16)
[2018-11-04] MEDS: Montelukast Sodium 10 mg Tablet PO SCH (20:16)
[2018-11-04] MEDS: Temazepam 15 MG CAP PO SCH (20:16)
[2018-11-05] MEDS: Docusate 100 MG CAP PO SCH ×2 (08:14→20:37)
[2018-11-05] MEDS: metFORMIN 500 MG TAB PO SCH ×2 (08:14→20:37)
[2018-11-05] MEDS: Potassium Chloride 20 MEQ TAB PO SCH (08:14)
[2018-11-05] MEDS: HYDROcodone/Acetaminophen 10/325 mg Tablet PO SCH ×2 (08:14→20:35)
[2018-11-05] MEDS: Furosemide 20 MG TAB PO SCH (08:14)
[2018-11-05] MEDS: Lidocaine Patch Removal 1 EACH TOP SCH (08:15)
[2018-11-05] MEDS: Levothyroxine Sodium 25 MCG TAB PO SCH (08:15)
[2018-11-05] MEDS: Gemfibrozil 600 MG TAB PO SCH ×2 (08:15→20:37)
[2018-11-05] MEDS: Ventolin HFA Inhaler 60 PUFF INHALER INH SCH ×4 (08:15→20:38)
[2018-11-05] MEDS: Lisinopril 5 MG TAB PO SCH (08:15)
[2018-11-05 13:59] LABS: #Basophils 0.1 thou/uL (0.0-0.2); #Eosinphils 0.1 thou/uL (0.0-0.7); #Lymphocytes 2.4 thou/uL (1.20-3.40); #Monocytes 0.8 thou/uL (0.11-0.59); #Neutrophils 4.1 thou/uL (1.40-6.50); %Basophils 1.5 % (0.0-1.0); %Eosinophils 1.7 % (0.0-10.0); %Lymphocytes 32.1 % (21.0-51.0); %Monocytes 10.1 % (0.0-10.0); %Neutrophils 54.6 % (42.0-75.0); Anisocytosis SLIGHT = 6-15 cells (100X) (0-5/hpf); MDiff Complete? YES; Mean Corpuscular Hemoglobin 28.9 pg (27.0-31.0); Mean Corpuscular Volume 90.6 fL (78.0-98.0); Mean Platelet Volume 6.8 fL (7.4-10.4); Platelet Count 423 thou/uL (130-400); Platelet Morphology Comment Appears Increased; RBC Distribution Width 20.3 % (11.5-14.5); Red Blood Cell (RBC) Count 3.46 mill/uL (4.20-5.40); Rouleaux Formation SLIGHT = 1-5 cells (100X) (None Seen); White Blood Cell (WBC) Count 7.5 thou/uL (4.8-10.8)
[2018-11-05] MEDS: Temazepam 15 MG CAP PO SCH (20:35)
[2018-11-05] MEDS: Lidocaine 5% Patch TD SCH (20:36)
[2018-11-05] MEDS: Montelukast Sodium 10 mg Tablet PO SCH (20:37)
[2018-11-05] MEDS: Nicotine 21 MG PATCH TD SCH (20:37)
[2018-11-06] MEDS: Lisinopril 5 MG TAB PO SCH (08:16)
[2018-11-06] MEDS: Gemfibrozil 600 MG TAB PO SCH ×2 (08:16→20:38)
[2018-11-06] MEDS: Levothyroxine Sodium 25 MCG TAB PO SCH (08:16)
[2018-11-06] MEDS: Potassium Chloride 20 MEQ TAB PO SCH (08:16)
[2018-11-06] MEDS: Furosemide 20 MG TAB PO SCH (08:16)
[2018-11-06] MEDS: metFORMIN 500 MG TAB PO SCH ×2 (08:16→20:39)
[2018-11-06] MEDS: HYDROcodone/Acetaminophen 10/325 mg Tablet PO SCH ×2 (08:16→20:38)
[2018-11-06] MEDS: Docusate 100 MG CAP PO SCH ×2 (08:16→20:38)
[2018-11-06] MEDS: Ventolin HFA Inhaler 60 PUFF INHALER INH SCH ×4 (08:17→20:40)
[2018-11-06] MEDS: Lidocaine Patch Removal 1 EACH TOP SCH (08:17)
[2018-11-06] MEDS: Montelukast Sodium 10 mg Tablet PO SCH (20:39)
[2018-11-06] MEDS: Lidocaine 5% Patch TD SCH (20:39)
[2018-11-06] MEDS: Nicotine 21 MG PATCH TD SCH (20:40)
[2018-11-06] MEDS: Temazepam 15 MG CAP PO SCH (20:40)
[2018-11-06] MEDS: ALPRAZolam 0.5 MG TAB PO PRN (20:43)
[2018-11-07] MEDS: Lisinopril 5 MG TAB PO SCH (08:09)
[2018-11-07] MEDS: Furosemide 20 MG TAB PO SCH (08:10)
[2018-11-07] MEDS: HYDROcodone/Acetaminophen 10/325 mg Tablet PO SCH ×2 (08:10→20:14)
[2018-11-07] MEDS: metFORMIN 500 MG TAB PO SCH ×2 (08:10→20:13)
[2018-11-07] MEDS: Levothyroxine Sodium 25 MCG TAB PO SCH (08:11)
[2018-11-07] MEDS: Docusate 100 MG CAP PO SCH ×2 (08:11→20:13)
[2018-11-07] MEDS: Gemfibrozil 600 MG TAB PO SCH ×2 (08:11→21:00)
[2018-11-07] MEDS: Potassium Chloride 20 MEQ TAB PO SCH (08:11)
[2018-11-07] MEDS: Lidocaine Patch Removal 1 EACH TOP SCH (08:12)
[2018-11-07] MEDS: Ventolin HFA Inhaler 60 PUFF INHALER INH SCH ×4 (08:14→20:15)
[2018-11-07] MEDS: Nicotine 21 MG PATCH TD SCH (10:48)
[2018-11-07] MEDS: traMADol HCl 50 MG TAB PO PRN (14:19)
[2018-11-07] MEDS: Lidocaine 5% Patch TD SCH (20:13)
[2018-11-07] MEDS: Montelukast Sodium 10 mg Tablet PO SCH (20:15)
[2018-11-07] MEDS: Temazepam 15 MG CAP PO SCH (20:15)
[2018-11-08] MEDS: Furosemide 20 MG TAB PO SCH (08:20)
[2018-11-08] MEDS: HYDROcodone/Acetaminophen 10/325 mg Tablet PO SCH ×2 (08:20→20:28)
[2018-11-08] MEDS: Ventolin HFA Inhaler 60 PUFF INHALER INH SCH ×4 (08:20→20:31)
[2018-11-08] MEDS: Lisinopril 5 MG TAB PO SCH (08:20)
[2018-11-08] MEDS: Levothyroxine Sodium 25 MCG TAB PO SCH (08:20)
[2018-11-08] MEDS: Lidocaine Patch Removal 1 EACH TOP SCH (08:21)
[2018-11-08] MEDS: Potassium Chloride 20 MEQ TAB PO SCH (08:21)
[2018-11-08] MEDS: metFORMIN 500 MG TAB PO SCH ×2 (08:21→20:30)
[2018-11-08] MEDS: Docusate 100 MG CAP PO SCH ×2 (08:21→20:28)
[2018-11-08] MEDS: Gemfibrozil 600 MG TAB PO SCH ×2 (08:21→20:28)
[2018-11-08 09:36] LABS: #Basophils 0.1 thou/uL (0.0-0.2); #Eosinphils 0.1 thou/uL (0.0-0.7); #Lymphocytes 2.1 thou/uL (1.20-3.40); #Monocytes 0.7 thou/uL (0.11-0.59); #Neutrophils 2.6 thou/uL (1.40-6.50); %Basophils 2.5 % (0.0-1.0); %Eosinophils 2.6 % (0.0-10.0); %Lymphocytes 36.4 % (21.0-51.0); %Neutrophils 46.4 % (42.0-75.0); Hemoglobin 9.9 g/dL (12.0-16.0); Mean Corpuscular HGB CONC 32.5 g/dL (32.0-36.0); Mean Corpuscular Hemoglobin 29.3 pg (27.0-31.0); Mean Corpuscular Volume 90.4 fL (78.0-98.0); Mean Platelet Volume 6.1 fL (7.4-10.4); Platelet Count 401 thou/uL (130-400); RBC Distribution Width 20.1 % (11.5-14.5); Red Blood Cell (RBC) Count 3.37 mill/uL (4.20-5.40); White Blood Cell (WBC) Count 5.7 thou/uL (4.8-10.8)
[2018-11-08 09:37] LABS: Anisocytosis SLIGHT = 6-15 cells (100X) (0-5/hpf); MDiff Complete? YES
[2018-11-08] MEDS: Nicotine 21 MG PATCH TD SCH (10:21)
[2018-11-08] MEDS: Lidocaine 5% Patch TD SCH (20:29)
[2018-11-08] MEDS: Temazepam 15 MG CAP PO SCH (20:30)
[2018-11-08] MEDS: Montelukast Sodium 10 mg Tablet PO SCH (20:30)
[2018-11-09] MEDS: Furosemide 20 MG TAB PO SCH (08:28)
[2018-11-09] MEDS: Docusate 100 MG CAP PO SCH ×2 (08:28→20:40)
[2018-11-09] MEDS: Gemfibrozil 600 MG TAB PO SCH ×2 (08:28→20:40)
[2018-11-09] MEDS: Lisinopril 5 MG TAB PO SCH (08:28)
[2018-11-09] MEDS: HYDROcodone/Acetaminophen 10/325 mg Tablet PO SCH ×2 (08:29→20:40)
[2018-11-09] MEDS: Potassium Chloride 20 MEQ TAB PO SCH (08:29)
[2018-11-09] MEDS: metFORMIN 500 MG TAB PO SCH ×2 (08:29→20:41)
[2018-11-09] MEDS: Levothyroxine Sodium 25 MCG TAB PO SCH (08:29)
[2018-11-09] MEDS: Lidocaine Patch Removal 1 EACH TOP SCH (08:30)
[2018-11-09] MEDS: Ventolin HFA Inhaler 60 PUFF INHALER INH SCH ×4 (08:32→21:24)
[2018-11-09] MEDS: Nicotine 21 MG PATCH TD SCH (11:38)
[2018-11-09] MEDS: traMADol HCl 50 MG TAB PO PRN (18:04)
[2018-11-09] MEDS: Temazepam 15 MG CAP PO SCH (20:41)
[2018-11-09] MEDS: Lidocaine 5% Patch TD SCH (20:41)
[2018-11-09] MEDS: Montelukast Sodium 10 mg Tablet PO SCH (20:41)
[2018-11-10] MEDS: HYDROcodone/Acetaminophen 10/325 mg Tablet PO SCH ×2 (08:08→20:52)
[2018-11-10] MEDS: Potassium Chloride 20 MEQ TAB PO SCH (08:08)
[2018-11-10] MEDS: metFORMIN 500 MG TAB PO SCH ×2 (08:08→20:53)
[2018-11-10] MEDS: Docusate 100 MG CAP PO SCH ×2 (08:08→20:51)
[2018-11-10] MEDS: Lidocaine Patch Removal 1 EACH TOP SCH (08:09)
[2018-11-10] MEDS: Levothyroxine Sodium 25 MCG TAB PO SCH (08:09)
[2018-11-10] MEDS: Lisinopril 5 MG TAB PO SCH (08:09)
[2018-11-10] MEDS: Gemfibrozil 600 MG TAB PO SCH ×2 (08:09→20:51)
[2018-11-10] MEDS: Furosemide 20 MG TAB PO SCH (08:09)
[2018-11-10] MEDS: Ventolin HFA Inhaler 60 PUFF INHALER INH SCH ×4 (08:10→20:51)
[2018-11-10] MEDS: Nicotine 21 MG PATCH TD SCH (10:53)
[2018-11-10] MEDS: traMADol HCl 50 MG TAB PO PRN (14:41)
[2018-11-10] MEDS: Montelukast Sodium 10 mg Tablet PO SCH (20:53)
[2018-11-10] MEDS: Lidocaine 5% Patch TD SCH (20:53)
[2018-11-10] MEDS: Temazepam 15 MG CAP PO SCH (20:54)
[2018-11-11] MEDS: Docusate 100 MG CAP PO SCH (08:13)
[2018-11-11] MEDS: Potassium Chloride 20 MEQ TAB PO SCH (08:13)
[2018-11-11] MEDS: HYDROcodone/Acetaminophen 10/325 mg Tablet PO SCH (08:13)
[2018-11-11] MEDS: Lisinopril 5 MG TAB PO SCH (08:13)
[2018-11-11] MEDS: Gemfibrozil 600 MG TAB PO SCH (08:13)
[2018-11-11] MEDS: Furosemide 20 MG TAB PO SCH (08:14)
[2018-11-11] MEDS: metFORMIN 500 MG TAB PO SCH (08:14)
[2018-11-11] MEDS: Lidocaine Patch Removal 1 EACH TOP SCH (08:14)
[2018-11-11] MEDS: Levothyroxine Sodium 25 MCG TAB PO SCH (08:14)
[2018-11-11] MEDS: Ventolin HFA Inhaler 60 PUFF INHALER INH SCH ×3 (08:14→17:26)
[2018-11-11 08:56] VITALS: BP 143/63; TEMP 97
[2018-11-11] MEDS: Nicotine 21 MG PATCH TD SCH (11:25)
--- NOTE | 2018-11-11 14:57 | DIS ---
DATE OF ADMISSION: 10/15/2018 DATE OF DISCHARGE: 11/11/2018 PRIMARY CARE PHYSICIAN: Iván Jeffery MD DISCHARGE PHYSICIAN: Eddie Abdul MD DISCHARGE DISPOSITION: Home with family members. [facility] to start physical therapy and occupational therapy. DISCHARGE DIAGNOSES: 1. Gait instability, much improved. 2. Status post left superior and inferior rami fracture, improved. 3. Diabetes type 2, well controlled. 4. Hypertension. 5. Hypothyroidism. 6. Constipation. DISCHARGE MEDICATIONS: 1. Tramadol 50 q.6h p.r.n. 2. Dulcolax 10 daily. 3. Colace 100 b.i.d. 4. Lidocaine 5% patch daily. 5. Metformin 500 b.i.d. 6. Lisinopril 5 mg daily. 7. Levothyroxine 25 mcg daily. 8. Metformin 500 b.i.d. 9. Milk of magnesia 30 mL daily. 10. [place] 1 to 2 tabs b.i.d. 11. Lasix 20 daily. 12. Xanax 0.5 b.i.d. 13. Montelukast 10 daily. 14. Potassium chloride 20 mEq daily. 15. Vistaril 50 at bedtime. 16. Omeprazole 40 daily. 17. ProAir 2 puffs 4 times a day p.r.n. BRIEF HOSPITAL COURSE: Ms. Cano is a 73-year-old female, who sustained a fall at home on October 12, x-ray did not show any fractures, but the CT of the pelvis confirmed left superior and inferior rami fracture. The decision was made after evaluation by Orthopedic doctor, Dr. Arora, that the patient did not require surgery and just physical therapy. The patient was subsequently admitted to [facility] on 15 October 2018, for skilled rehabilitation. Initially, the patient was not very willing to participate in physical therapy, but she was encouraged and progressively improved. During hospitalization, the patient's stay was complicated by a right ankle swelling and pain. Testing was done for gout and any fractures and all negative. The patient states she does have joint pain and swelling occasionally due to arthritis. The patient was treated with a 6-day Medrol Saulo and this improved significantly. The patient during the hospitalization, was also noted to have some elevated blood pressure, and lisinopril 5 mg was added to her medication regimen and she tolerated this nicely. The patient progressively improved with physical therapy and due to moving to a new home, she did have a day pass to go see how she would do in the new home, and the patient tolerated this well. She was very excited to go home and the patient on day of discharge, was able to walk 175 feet using a rolling walker. She passed physical therapy. She has met some of our goals and gait, balance, strength, and transfers looked significantly improved. The patient was discharged home on the in a stable condition. Script was written for rolling walker, wheelchair, and a shower chair. The patient was advised to follow up with her primary care doctor within 1 week. [facility] to start occupational and physical therapy per the patient's request. Discharge vital signs; temperature 97.0, blood pressure 127/78, pulse 72, respiration 18, O2 saturation 96% on room air. This patient is a DNR. Job ID: [id number] [facility]
[2018-11-11 17:45] VITALS: BMI 24.3
== END 2018-11-11 19:07 | disposition home health service (06) | DRG 561 ==
LOC: MADMS 18:13
PROVIDERS: ADMIT Family Medicine; ATTEND Family Medicine
DX: S32.592D Other specified fracture of left pubis, subsequent encounter for fracture with routine healing (principal); I10 Essential (primary) hypertension; E11.9 Type 2 diabetes mellitus without complications; Z66 Do not resuscitate; E03.9 Hypothyroidism, unspecified; K59.00 Constipation, unspecified; R26.89 Other abnormalities of gait and mobility; R11.0 Nausea; R52 Pain, unspecified; M19.90 Unspecified osteoarthritis, unspecified site; F17.210 Nicotine dependence, cigarettes, uncomplicated; Z96.642 Presence of left artificial hip joint; Z79.84 Long term (current) use of oral hypoglycemic drugs; V89.9XXD Person injured in unspecified vehicle accident, subsequent encounter
CPT/HCPCS: 36415; 36416; 80048; 80053; 84550; 85025; J1650; Q0162

== ENCOUNTER 2018-12-27 17:10 | Emergency (ER) | payer MEDICAID, MEDICARE ==
[2018-12-27] MEDS ORDERED: Ketorolac Tromethamine 30 MG/ML VIAL ONE (17:39)
[2018-12-27] MEDS ORDERED: Pantoprazole 40 MG VIAL ONE (17:39)
--- NOTE | 2018-12-27 18:01 | RAD ---
XR Lumbar Spine 2 Or 3 View: 12/27/2018 5:28 PM CLINICAL INDICATION: Pain COMPARISON: 10/11/2018 FINDINGS: Fracture:Interval mild superior endplate height loss of L2 and L3. Arthropathy:Moderate multilevel degenerative change Incidental findings: Within left hemipelvis, adjacent partially imaged left hip hardware, there is mendes bacute fracture deformity of the left superior pubic ramus and left inferior pubic ramus, as indicated by callus formation. Vascular calcification IMPRESSION: 1. Interval mild compression fractures of L2 and L3. Correlate clinically. 2. Subacute left hemipelvic fractures.
== END 2018-12-27 18:48 | disposition home or self-care (01) ==
LOC: MADERS 17:10
DX: S32.029A Unspecified fracture of second lumbar vertebra, initial encounter for closed fracture (principal); S32.039A Unspecified fracture of third lumbar vertebra, initial encounter for closed fracture; I10 Essential (primary) hypertension; R73.03 Prediabetes; F17.210 Nicotine dependence, cigarettes, uncomplicated; Z79.891 Long term (current) use of opiate analgesic; Z79.899 Other long term (current) drug therapy; W19.XXXA Unspecified fall, initial encounter; Z79.51 Long term (current) use of inhaled steroids
CPT/HCPCS: 72100; 96374; 96375; C9113; J1885

== ENCOUNTER 2019-07-01 12:17 | Outpatient (CLI) | payer MEDICARE, OTHER ==
--- NOTE | 2019-07-01 12:38 | RAD ---
2 view chest: [07/01/2019 Comparison:01/07/2019 HISTORY: Acute bronchitis FINDINGS: Heart and mediastinal contours are stable. Diffuse increased linear interstitial density wi th pulmonary hyperinflation noted, suggesting COPD in the proper clinical setting. There is a horizontally oriented linear area of increased density within the anterior clear space on the lateral examination which may represent scar or volume loss. This probably correlates with a linear area of density within the infrahilar region on the right. IMPRESSION: Interstitial prominence and pulmonary hyperinflation as described above. Horizontally stephanie ented linear density in the right perihilar region anteriorly suggests scarring and/or volume loss. Recommend PA and lateral follow-up imaging to document resolution in 4-6 weeks. CODE T
== END 2019-07-01 12:18 | disposition home or self-care (01) ==
LOC: MADRAD 12:17
PROVIDERS: ATTEND Family Medicine
DX: J20.9 Acute bronchitis, unspecified (principal); R05 Cough; R91.8 Other nonspecific abnormal finding of lung field; J98.4 Other disorders of lung
CPT/HCPCS: 71046

== ENCOUNTER 2021-09-28 16:52 | Inpatient (IN) | payer MEDICARE, MEDICAID ==
[2021-09-28] MEDS ORDERED: Temazepam 15 MG CAP PER TUBE PRN (18:19)
[2021-09-28] MEDS ORDERED: HYDROcodone/Acetaminophen 7.5/325 mg Tablet PER TUBE PRN (18:19)
[2021-09-28] MEDS ORDERED: ALPRAZolam 0.5 MG TAB PO PRN (18:19)
[2021-09-28] MEDS ORDERED: Nicotine 7 MG PATCH TD SCH (18:30)
[2021-09-28] MEDS: metFORMIN 500 MG TAB PER TUBE SCH (21:53)
[2021-09-28] MEDS: Amiodarone 200 MG TAB PER TUBE SCH (21:53)
[2021-09-28] MEDS: Atorvastatin Calcium 40 MG TAB PER TUBE SCH (21:53)
[2021-09-29 05:40] LABS: #Basophils 0.2 thou/uL (0.0-0.2); #Eosinphils 0.2 thou/uL (0.0-0.7); #Lymphocytes 1.4 thou/uL (1.20-3.40); #Monocytes 1.1 thou/uL (0.11-0.59); #Neutrophils 9.2 thou/uL (1.40-6.50); %Basophils 1.4 % (0.0-1.0); %Eosinophils 1.5 % (0.0-10.0); %Lymphocytes 11.3 % (21.0-51.0); %Monocytes 8.9 % (0.0-10.0); %Neutrophils 76.9 % (42.0-75.0); Anisocytosis SLIGHT = 6-15 cells (100X) (0-5/hpf); Hemoglobin 8.1 g/dL (12.0-16.0); Hypochromia SLIGHT = 6-15 cells (100X) (0-5/hpf); MDiff Complete? YES; Macrocytosis SLIGHT = 6-15 cells (100X) (0-5/hpf); Mean Corpuscular HGB CONC 28.9 g/dL (32.0-36.0); Mean Corpuscular Hemoglobin 29.3 pg (27.0-31.0); Mean Corpuscular Volume 101.6 fL (78.0-98.0); Mean Platelet Volume 9.1 fL (7.4-10.4); Platelet Count 368 thou/uL (130-400); Platelet Morphology Comment Appears Adequate; RBC Distribution Width 22.6 % (11.5-14.5); Red Blood Cell (RBC) Count 2.75 mill/uL (4.20-5.40); Target Cells SLIGHT = 2-5 cells (100X) (0-1/hpf)
[2021-09-29 05:51] LABS: ALT (SGPT) 13 U/L (8-55); AST (SGOT) 22 U/L (5-34); Albumin 3.1 g/dL (3.4-4.8); Alkaline Phosphatase 62 U/L (40-110); Anion Gap 17 mmol/L (10-20); BUN (Urea Nitrogen) 13 mg/dL (9.8-20.1); Bilirubin, Total 0.5 mg/dL (0.2-1.2); Calc. Creatinine Clearance 94 mL/min (70-130); Calcium 8.4 mg/dL (7.8-10.44); Carbon Dioxide 20 mmol/L (23-31); Chloride 103 mmol/L (98-107); Globulin 3.3 g/dL (2.4-3.5); Glucose 98 mg/dL (83-110); Potassium 4.5 mmol/L (3.5-5.1); Protein, Total 6.4 g/dL (5.8-8.1); Sodium 135 mmol/L (136-145)
[2021-09-29] MEDS: Levothyroxine Sodium 25 MCG TAB PER TUBE SCH (05:57)
[2021-09-29] MEDS: metFORMIN 500 MG TAB PER TUBE SCH ×2 (09:40→20:10)
[2021-09-29] MEDS: Amiodarone 200 MG TAB PER TUBE SCH ×2 (09:40→20:10)
[2021-09-29] MEDS: Aspirin 325 MG TAB PER TUBE SCH (09:40)
[2021-09-29] MEDS: Lisinopril 5 MG TAB PER TUBE SCH (09:40)
[2021-09-29] MEDS: Pantoprazole 40 MG GRANULES PACKET PER TUBE SCH (09:40)
[2021-09-29] MEDS: Amlodipine 5 MG TAB PER TUBE SCH (09:40)
[2021-09-29] MEDS: Furosemide 20 MG TAB PER TUBE SCH (09:40)
[2021-09-29] MEDS: Enoxaparin Sodium 40 MG/0.4 ML SYRINGE SC SCH (09:41)
[2021-09-29] MEDS: Atorvastatin Calcium 40 MG TAB PER TUBE SCH (20:10)
[2021-09-30] MEDS: Levothyroxine Sodium 25 MCG TAB PER TUBE SCH (05:28)
[2021-09-30] MEDS: Enoxaparin Sodium 40 MG/0.4 ML SYRINGE SC SCH (09:12)
[2021-09-30] MEDS: Pantoprazole 40 MG GRANULES PACKET PER TUBE SCH (09:13)
[2021-09-30] MEDS: Amiodarone 200 MG TAB PER TUBE SCH ×2 (09:13→20:27)
[2021-09-30] MEDS: Amlodipine 5 MG TAB PER TUBE SCH (09:13)
[2021-09-30] MEDS: metFORMIN 500 MG TAB PER TUBE SCH ×2 (09:14→20:27)
[2021-09-30] MEDS: Furosemide 20 MG TAB PER TUBE SCH (09:14)
[2021-09-30] MEDS: Lisinopril 5 MG TAB PER TUBE SCH (09:14)
[2021-09-30] MEDS: Aspirin 325 MG TAB PER TUBE SCH (09:14)
[2021-09-30] MEDS: Atorvastatin Calcium 40 MG TAB PER TUBE SCH (20:27)
[2021-10-01] MEDS: Levothyroxine Sodium 25 MCG TAB PER TUBE SCH (05:27)
[2021-10-01] MEDS: Enoxaparin Sodium 40 MG/0.4 ML SYRINGE SC SCH (09:55)
[2021-10-01] MEDS: Aspirin 325 MG TAB PER TUBE SCH (09:55)
[2021-10-01] MEDS: Amiodarone 200 MG TAB PER TUBE SCH ×2 (09:55→21:21)
[2021-10-01] MEDS: Lisinopril 5 MG TAB PER TUBE SCH (09:55)
[2021-10-01] MEDS: Amlodipine 5 MG TAB PER TUBE SCH (09:56)
[2021-10-01] MEDS: Pantoprazole 40 MG GRANULES PACKET PER TUBE SCH (09:56)
[2021-10-01] MEDS: metFORMIN 500 MG TAB PER TUBE SCH ×2 (09:56→21:21)
[2021-10-01] MEDS: Furosemide 20 MG TAB PER TUBE SCH (09:56)
[2021-10-01] MEDS: Atorvastatin Calcium 40 MG TAB PER TUBE SCH (21:16)
[2021-10-02] MEDS: Levothyroxine Sodium 25 MCG TAB PER TUBE SCH (06:04)
[2021-10-02] MEDS: Aspirin 325 MG TAB PER TUBE SCH (08:56)
[2021-10-02] MEDS: metFORMIN 500 MG TAB PER TUBE SCH ×2 (08:56→21:24)
[2021-10-02] MEDS: Furosemide 20 MG TAB PER TUBE SCH (08:56)
[2021-10-02] MEDS: Pantoprazole 40 MG GRANULES PACKET PER TUBE SCH (08:56)
[2021-10-02] MEDS: Amlodipine 5 MG TAB PER TUBE SCH (08:56)
[2021-10-02] MEDS: Amiodarone 200 MG TAB PER TUBE SCH ×2 (08:56→21:24)
[2021-10-02] MEDS: Lisinopril 5 MG TAB PER TUBE SCH (08:56)
[2021-10-02] MEDS: Enoxaparin Sodium 40 MG/0.4 ML SYRINGE SC SCH (08:57)
[2021-10-02] MEDS: Atorvastatin Calcium 40 MG TAB PER TUBE SCH (21:24)
[2021-10-03] MEDS: Levothyroxine Sodium 25 MCG TAB PER TUBE SCH (05:21)
[2021-10-03] MEDS: Amiodarone 200 MG TAB PER TUBE SCH ×2 (08:40→20:16)
[2021-10-03] MEDS: Enoxaparin Sodium 40 MG/0.4 ML SYRINGE SC SCH (08:40)
[2021-10-03] MEDS: Lisinopril 5 MG TAB PER TUBE SCH (08:40)
[2021-10-03] MEDS: metFORMIN 500 MG TAB PER TUBE SCH ×2 (08:41→20:16)
[2021-10-03] MEDS: Amlodipine 5 MG TAB PER TUBE SCH (08:41)
[2021-10-03] MEDS: Pantoprazole 40 MG GRANULES PACKET PER TUBE SCH (08:41)
[2021-10-03] MEDS: Furosemide 20 MG TAB PER TUBE SCH (08:41)
[2021-10-03] MEDS: Aspirin 325 MG TAB PER TUBE SCH (08:41)
[2021-10-03 14:39] LABS: SARS-CoV-2 PCR by NAA Not Detected (NotDetected)
[2021-10-03] MEDS: Atorvastatin Calcium 40 MG TAB PER TUBE SCH (20:16)
[2021-10-04] MEDS: Levothyroxine Sodium 25 MCG TAB PER TUBE SCH (05:18)
[2021-10-04] MEDS: Enoxaparin Sodium 40 MG/0.4 ML SYRINGE SC SCH (09:35)
[2021-10-04] MEDS: Lisinopril 5 MG TAB PER TUBE SCH (09:35)
[2021-10-04] MEDS: Acetaminophen 325 MG TAB PER TUBE PRN (09:35)
[2021-10-04] MEDS: Amlodipine 5 MG TAB PER TUBE SCH (09:35)
[2021-10-04] MEDS: metFORMIN 500 MG TAB PER TUBE SCH ×2 (09:36→21:30)
[2021-10-04] MEDS: Furosemide 20 MG TAB PER TUBE SCH (09:36)
[2021-10-04] MEDS: Pantoprazole 40 MG GRANULES PACKET PER TUBE SCH (09:36)
[2021-10-04] MEDS: Amiodarone 200 MG TAB PER TUBE SCH ×2 (09:36→21:30)
[2021-10-04] MEDS: Aspirin 325 MG TAB PER TUBE SCH (09:36)
[2021-10-04] MEDS: Atorvastatin Calcium 40 MG TAB PER TUBE SCH (21:30)
[2021-10-05] MEDS ORDERED: Lantiseptic Ointment 130 GM JAR TOP PRN (00:23)
[2021-10-05] MEDS: Levothyroxine Sodium 25 MCG TAB PER TUBE SCH (05:35)
[2021-10-05] MEDS: Amlodipine 5 MG TAB PER TUBE SCH (09:45)
[2021-10-05] MEDS: Aspirin 325 MG TAB PER TUBE SCH (09:45)
[2021-10-05] MEDS: Enoxaparin Sodium 40 MG/0.4 ML SYRINGE SC SCH (09:45)
[2021-10-05] MEDS: metFORMIN 500 MG TAB PER TUBE SCH ×2 (09:45→20:20)
[2021-10-05] MEDS: Furosemide 20 MG TAB PER TUBE SCH (09:45)
[2021-10-05] MEDS: Pantoprazole 40 MG GRANULES PACKET PER TUBE SCH (09:45)
[2021-10-05] MEDS: Lisinopril 5 MG TAB PER TUBE SCH (09:46)
[2021-10-05] MEDS: Lantiseptic Ointment 130 GM JAR TOP SCH ×2 (09:46→20:21)
[2021-10-05] MEDS: Amiodarone 200 MG TAB PER TUBE SCH ×2 (09:46→20:20)
[2021-10-05] MEDS: HYDROcodone/Acetaminophen 5/325 mg Tablet PER TUBE PRN (09:48)
[2021-10-05] MEDS: Atorvastatin Calcium 40 MG TAB PER TUBE SCH (20:20)
[2021-10-06] MEDS: Levothyroxine Sodium 25 MCG TAB PER TUBE SCH (05:30)
[2021-10-06] MEDS: Amiodarone 200 MG TAB PER TUBE SCH ×2 (08:31→21:38)
[2021-10-06] MEDS: Lisinopril 5 MG TAB PER TUBE SCH (08:32)
[2021-10-06] MEDS: Aspirin 325 MG TAB PER TUBE SCH (08:32)
[2021-10-06] MEDS: Pantoprazole 40 MG GRANULES PACKET PER TUBE SCH (08:32)
[2021-10-06] MEDS: Enoxaparin Sodium 40 MG/0.4 ML SYRINGE SC SCH (08:32)
[2021-10-06] MEDS: metFORMIN 500 MG TAB PER TUBE SCH ×2 (08:32→21:37)
[2021-10-06] MEDS: Furosemide 20 MG TAB PER TUBE SCH (08:32)
[2021-10-06] MEDS: Amlodipine 5 MG TAB PER TUBE SCH (08:32)
[2021-10-06] MEDS: Lantiseptic Ointment 130 GM JAR TOP SCH ×2 (08:35→21:38)
[2021-10-06] MEDS: Atorvastatin Calcium 40 MG TAB PER TUBE SCH (21:38)
[2021-10-07] MEDS: HYDROcodone/Acetaminophen 5/325 mg Tablet PER TUBE PRN (01:03)
[2021-10-07] MEDS: Levothyroxine Sodium 25 MCG TAB PER TUBE SCH (06:21)
[2021-10-07] MEDS: Amiodarone 200 MG TAB PER TUBE SCH ×2 (08:30→22:36)
[2021-10-07] MEDS: Amlodipine 5 MG TAB PER TUBE SCH (08:30)
[2021-10-07] MEDS: Enoxaparin Sodium 40 MG/0.4 ML SYRINGE SC SCH (08:30)
[2021-10-07] MEDS: Pantoprazole 40 MG GRANULES PACKET PER TUBE SCH (08:30)
[2021-10-07] MEDS: Aspirin 325 MG TAB PER TUBE SCH (08:30)
[2021-10-07] MEDS: Furosemide 20 MG TAB PER TUBE SCH (08:31)
[2021-10-07] MEDS: metFORMIN 500 MG TAB PER TUBE SCH ×2 (08:31→22:36)
[2021-10-07] MEDS: Lisinopril 5 MG TAB PER TUBE SCH (08:31)
[2021-10-07] MEDS: Lantiseptic Ointment 130 GM JAR TOP SCH ×2 (08:33→22:37)
[2021-10-07] MEDS: Acetaminophen 325 MG TAB PER TUBE PRN (22:35)
[2021-10-07] MEDS: Atorvastatin Calcium 40 MG TAB PER TUBE SCH (22:36)
[2021-10-08] MEDS: Levothyroxine Sodium 25 MCG TAB PER TUBE SCH (05:31)
[2021-10-08] MEDS: Enoxaparin Sodium 40 MG/0.4 ML SYRINGE SC SCH (08:42)
[2021-10-08] MEDS: Pantoprazole 40 MG GRANULES PACKET PER TUBE SCH (08:43)
[2021-10-08] MEDS: metFORMIN 500 MG TAB PER TUBE SCH ×2 (08:43→20:56)
[2021-10-08] MEDS: Fluconazole 100 MG TAB PER TUBE SCH (08:43)
[2021-10-08] MEDS: Amlodipine 5 MG TAB PER TUBE SCH (08:44)
[2021-10-08] MEDS: Aspirin 325 MG TAB PER TUBE SCH (08:44)
[2021-10-08] MEDS: Amiodarone 200 MG TAB PER TUBE SCH ×2 (08:44→20:56)
[2021-10-08] MEDS: Lisinopril 5 MG TAB PER TUBE SCH (08:44)
[2021-10-08] MEDS: Lantiseptic Ointment 130 GM JAR TOP SCH ×2 (08:45→20:58)
[2021-10-08] MEDS: Furosemide 20 MG TAB PER TUBE SCH (08:46)
[2021-10-08] MEDS: Ondansetron ODT 4 MG TAB PO PRN (11:02)
[2021-10-08] MEDS: HYDROcodone/Acetaminophen 5/325 mg Tablet PER TUBE PRN (20:55)
[2021-10-08] MEDS: Atorvastatin Calcium 40 MG TAB PER TUBE SCH (20:58)
[2021-10-09] MEDS: Levothyroxine Sodium 25 MCG TAB PER TUBE SCH ×2 (05:44→23:34)
[2021-10-09] MEDS: Ondansetron ODT 4 MG TAB PO PRN (05:56)
[2021-10-09] MEDS: Enoxaparin Sodium 40 MG/0.4 ML SYRINGE SC SCH (09:02)
[2021-10-09] MEDS: Pantoprazole 40 MG GRANULES PACKET PER TUBE SCH (09:03)
[2021-10-09] MEDS: Amiodarone 200 MG TAB PER TUBE SCH ×2 (09:03→20:21)
[2021-10-09] MEDS: Aspirin 325 MG TAB PER TUBE SCH (09:03)
[2021-10-09] MEDS: Fluconazole 100 MG TAB PER TUBE SCH (09:04)
[2021-10-09] MEDS: Amlodipine 5 MG TAB PER TUBE SCH (09:04)
[2021-10-09] MEDS: Furosemide 20 MG TAB PER TUBE SCH (09:04)
[2021-10-09] MEDS: Lisinopril 5 MG TAB PER TUBE SCH (09:04)
[2021-10-09] MEDS: metFORMIN 500 MG TAB PER TUBE SCH ×2 (09:05→20:21)
[2021-10-09] MEDS: Lantiseptic Ointment 130 GM JAR TOP SCH ×2 (09:08→20:33)
[2021-10-09] MEDS: Atorvastatin Calcium 40 MG TAB PER TUBE SCH (20:21)
[2021-10-09] MEDS: HYDROcodone/Acetaminophen 5/325 mg Tablet PER TUBE PRN (20:22)
[2021-10-10] MEDS: Pantoprazole 40 MG GRANULES PACKET PER TUBE SCH (08:27)
[2021-10-10] MEDS: Amiodarone 200 MG TAB PER TUBE SCH ×2 (08:27→20:18)
[2021-10-10] MEDS: Aspirin 325 MG TAB PER TUBE SCH (08:28)
[2021-10-10] MEDS: Lisinopril 5 MG TAB PER TUBE SCH (08:28)
[2021-10-10] MEDS: Fluconazole 100 MG TAB PER TUBE SCH (08:29)
[2021-10-10] MEDS: Furosemide 20 MG TAB PER TUBE SCH (08:29)
[2021-10-10] MEDS: Enoxaparin Sodium 40 MG/0.4 ML SYRINGE SC SCH (08:30)
[2021-10-10] MEDS: Amlodipine 5 MG TAB PER TUBE SCH (08:30)
[2021-10-10] MEDS: Lantiseptic Ointment 130 GM JAR TOP SCH ×2 (08:32→20:18)
[2021-10-10] MEDS: metFORMIN 500 MG TAB PER TUBE SCH ×2 (08:32→20:18)
[2021-10-10 16:01] LABS: SARS-CoV-2 PCR by NAA Not Detected (NotDetected)
[2021-10-10] MEDS: HYDROcodone/Acetaminophen 5/325 mg Tablet PER TUBE PRN (17:44)
[2021-10-10] MEDS: Atorvastatin Calcium 40 MG TAB PER TUBE SCH (20:18)
[2021-10-10 23:19] LABS: SARS-CoV-2 NAA Rapid Test Not Detected (NotDetected)
[2021-10-10] MEDS: Levothyroxine Sodium 25 MCG TAB PER TUBE SCH (23:37)
[2021-10-11 05:33] LABS: #Basophils 0.1 thou/uL (0.0-0.2); #Eosinphils 0.1 thou/uL (0.0-0.7); #Lymphocytes 0.9 thou/uL (1.20-3.40); #Monocytes 0.8 thou/uL (0.11-0.59); #Neutrophils 5.2 thou/uL (1.40-6.50); %Basophils 1.5 % (0.0-1.0); %Eosinophils 1.7 % (0.0-10.0); %Lymphocytes 12.4 % (21.0-51.0); %Monocytes 10.9 % (0.0-10.0); %Neutrophils 73.6 % (42.0-75.0); Anisocytosis SLIGHT = 6-15 cells (100X) (0-5/hpf); Hemoglobin 9.2 g/dL (12.0-16.0); MDiff Complete? YES; Macrocytosis SLIGHT = 6-15 cells (100X) (0-5/hpf); Mean Corpuscular HGB CONC 33.5 g/dL (32.0-36.0); Mean Corpuscular Hemoglobin 32.5 pg (27.0-31.0); Mean Platelet Volume 8.6 fL (7.4-10.4); Platelet Count 330 thou/uL (130-400); Platelet Morphology Comment Appears Adequate; RBC Distribution Width 22.7 % (11.5-14.5); Red Blood Cell (RBC) Count 2.84 mill/uL (4.20-5.40)
[2021-10-11 05:39] LABS: ALT (SGPT) 33 U/L (8-55); AST (SGOT) 24 U/L (5-34); Albumin 3.8 g/dL (3.4-4.8); Alkaline Phosphatase 70 U/L (40-110); Anion Gap 17 mmol/L (10-20); BUN (Urea Nitrogen) 28 mg/dL (9.8-20.1); Bilirubin, Total 0.6 mg/dL (0.2-1.2); Calc. Creatinine Clearance 83 mL/min (70-130); Calcium 8.7 mg/dL (7.8-10.44); Carbon Dioxide 27 mmol/L (23-31); Chloride 91 mmol/L (98-107); Globulin 2.9 g/dL (2.4-3.5); Glucose 102 mg/dL (83-110); Potassium 5.5 mmol/L (3.5-5.1); Protein, Total 6.7 g/dL (5.8-8.1); Sodium 129 mmol/L (136-145)
[2021-10-11] MEDS: Lisinopril 5 MG TAB PER TUBE SCH (09:45)
[2021-10-11] MEDS: Aspirin 325 MG TAB PER TUBE SCH (09:45)
[2021-10-11] MEDS: Amlodipine 5 MG TAB PER TUBE SCH (09:46)
[2021-10-11] MEDS: Pantoprazole 40 MG GRANULES PACKET PER TUBE SCH (09:46)
[2021-10-11] MEDS: Amiodarone 200 MG TAB PER TUBE SCH ×2 (09:46→21:56)
[2021-10-11] MEDS: Furosemide 20 MG TAB PER TUBE SCH (09:46)
[2021-10-11] MEDS: Enoxaparin Sodium 40 MG/0.4 ML SYRINGE SC SCH (09:47)
[2021-10-11] MEDS: metFORMIN 500 MG TAB PER TUBE SCH ×2 (09:47→21:56)
[2021-10-11] MEDS: Lantiseptic Ointment 130 GM JAR TOP SCH ×2 (09:47→21:59)
[2021-10-11] MEDS: HYDROcodone/Acetaminophen 5/325 mg Tablet PER TUBE PRN (21:56)
[2021-10-11] MEDS: Atorvastatin Calcium 40 MG TAB PER TUBE SCH (21:56)
[2021-10-12] MEDS: Levothyroxine Sodium 25 MCG TAB PER TUBE SCH ×2 (00:29→23:58)
[2021-10-12] MEDS: Lisinopril 5 MG TAB PER TUBE SCH (09:44)
[2021-10-12] MEDS: Amlodipine 5 MG TAB PER TUBE SCH (09:44)
[2021-10-12] MEDS: Amiodarone 200 MG TAB PER TUBE SCH ×2 (09:44→20:52)
[2021-10-12] MEDS: Furosemide 20 MG TAB PER TUBE SCH (09:44)
[2021-10-12] MEDS: metFORMIN 500 MG TAB PER TUBE SCH ×2 (09:44→20:53)
[2021-10-12] MEDS: Aspirin 325 MG TAB PER TUBE SCH (09:44)
[2021-10-12] MEDS: Pantoprazole 40 MG GRANULES PACKET PER TUBE SCH (09:45)
[2021-10-12] MEDS: Enoxaparin Sodium 40 MG/0.4 ML SYRINGE SC SCH (09:45)
[2021-10-12] MEDS: Acetaminophen 325 MG TAB PER TUBE PRN ×2 (09:45→20:52)
[2021-10-12] MEDS: Lantiseptic Ointment 130 GM JAR TOP SCH ×2 (09:46→20:53)
[2021-10-12] MEDS: Atorvastatin Calcium 40 MG TAB PER TUBE SCH (20:53)
[2021-10-13] MEDS: Amlodipine 5 MG TAB PER TUBE SCH (08:41)
[2021-10-13] MEDS: Pantoprazole 40 MG GRANULES PACKET PER TUBE SCH (08:41)
[2021-10-13] MEDS: Aspirin 325 MG TAB PER TUBE SCH (08:41)
[2021-10-13] MEDS: Lisinopril 5 MG TAB PER TUBE SCH (08:41)
[2021-10-13] MEDS: Furosemide 20 MG TAB PER TUBE SCH (08:41)
[2021-10-13] MEDS: Amiodarone 200 MG TAB PER TUBE SCH ×2 (08:41→21:49)
[2021-10-13] MEDS: metFORMIN 500 MG TAB PER TUBE SCH ×2 (08:42→21:49)
[2021-10-13] MEDS: Enoxaparin Sodium 40 MG/0.4 ML SYRINGE SC SCH (08:43)
[2021-10-13] MEDS: Lantiseptic Ointment 130 GM JAR TOP SCH ×2 (08:43→21:50)
[2021-10-13] MEDS: HYDROcodone/Acetaminophen 5/325 mg Tablet PER TUBE PRN (14:45)
[2021-10-13] MEDS: Atorvastatin Calcium 40 MG TAB PER TUBE SCH (21:49)
[2021-10-13] MEDS: Levothyroxine Sodium 25 MCG TAB PER TUBE SCH (21:50)
[2021-10-14] MEDS: Acetaminophen 325 MG TAB PER TUBE PRN ×3 (05:39→22:07)
[2021-10-14] MEDS: metFORMIN 500 MG TAB PER TUBE SCH ×2 (09:04→22:11)
[2021-10-14] MEDS: Amiodarone 200 MG TAB PER TUBE SCH ×2 (09:04→22:06)
[2021-10-14] MEDS: Furosemide 20 MG TAB PER TUBE SCH (09:04)
[2021-10-14] MEDS: Amlodipine 5 MG TAB PER TUBE SCH (09:04)
[2021-10-14] MEDS: Aspirin 325 MG TAB PER TUBE SCH (09:04)
[2021-10-14] MEDS: Lisinopril 5 MG TAB PER TUBE SCH (09:04)
[2021-10-14] MEDS: Lantiseptic Ointment 130 GM JAR TOP SCH ×2 (09:05→22:12)
[2021-10-14] MEDS: Pantoprazole 40 MG GRANULES PACKET PER TUBE SCH (09:05)
[2021-10-14] MEDS: Enoxaparin Sodium 40 MG/0.4 ML SYRINGE SC SCH (09:05)
[2021-10-14] MEDS: HYDROcodone/Acetaminophen 5/325 mg Tablet PER TUBE PRN (15:16)
[2021-10-14] MEDS: Atorvastatin Calcium 40 MG TAB PER TUBE SCH (22:07)
[2021-10-14] MEDS: Levothyroxine Sodium 25 MCG TAB PER TUBE SCH (22:07)
[2021-10-15] MEDS: Furosemide 20 MG TAB PER TUBE SCH (09:32)
[2021-10-15] MEDS: Lisinopril 5 MG TAB PER TUBE SCH (09:32)
[2021-10-15] MEDS: Enoxaparin Sodium 40 MG/0.4 ML SYRINGE SC SCH (09:32)
[2021-10-15] MEDS: Amlodipine 5 MG TAB PER TUBE SCH (09:32)
[2021-10-15] MEDS: Pantoprazole 40 MG GRANULES PACKET PER TUBE SCH (09:32)
[2021-10-15] MEDS: Amiodarone 200 MG TAB PER TUBE SCH ×2 (09:33→20:31)
[2021-10-15] MEDS: metFORMIN 500 MG TAB PER TUBE SCH ×2 (09:33→20:31)
[2021-10-15] MEDS: Aspirin 325 MG TAB PER TUBE SCH (09:33)
[2021-10-15] MEDS: Lantiseptic Ointment 130 GM JAR TOP SCH ×2 (09:33→20:34)
[2021-10-15] MEDS: Atorvastatin Calcium 40 MG TAB PER TUBE SCH (20:31)
[2021-10-15] MEDS: Levothyroxine Sodium 25 MCG TAB PER TUBE SCH (20:31)
[2021-10-15] MEDS: Acetaminophen 325 MG TAB PER TUBE PRN (20:32)
[2021-10-16] MEDS: HYDROcodone/Acetaminophen 5/325 mg Tablet PER TUBE PRN ×2 (02:32→20:04)
[2021-10-16] MEDS: Amiodarone 200 MG TAB PER TUBE SCH ×2 (09:41→20:06)
[2021-10-16] MEDS: Enoxaparin Sodium 40 MG/0.4 ML SYRINGE SC SCH (09:41)
[2021-10-16] MEDS: Pantoprazole 40 MG GRANULES PACKET PER TUBE SCH (09:41)
[2021-10-16] MEDS: Lantiseptic Ointment 130 GM JAR TOP SCH ×2 (09:42→20:07)
[2021-10-16] MEDS: metFORMIN 500 MG TAB PER TUBE SCH ×2 (09:42→20:06)
[2021-10-16] MEDS: Furosemide 20 MG TAB PER TUBE SCH (09:42)
[2021-10-16] MEDS: Amlodipine 5 MG TAB PER TUBE SCH (09:42)
[2021-10-16] MEDS: Aspirin 325 MG TAB PER TUBE SCH (09:42)
[2021-10-16] MEDS: Lisinopril 5 MG TAB PER TUBE SCH (09:42)
[2021-10-16] MEDS: Atorvastatin Calcium 40 MG TAB PER TUBE SCH (20:06)
[2021-10-16] MEDS: Levothyroxine Sodium 25 MCG TAB PER TUBE SCH (20:07)
[2021-10-17] MEDS: Acetaminophen 325 MG TAB PER TUBE PRN ×2 (05:55→21:56)
[2021-10-17] MEDS: Enoxaparin Sodium 40 MG/0.4 ML SYRINGE SC SCH (08:11)
[2021-10-17] MEDS: metFORMIN 500 MG TAB PER TUBE SCH ×2 (08:12→21:56)
[2021-10-17] MEDS: Furosemide 20 MG TAB PER TUBE SCH (08:12)
[2021-10-17] MEDS: Pantoprazole 40 MG GRANULES PACKET PER TUBE SCH (08:12)
[2021-10-17] MEDS: Amiodarone 200 MG TAB PER TUBE SCH ×2 (08:12→21:56)
[2021-10-17] MEDS: Amlodipine 5 MG TAB PER TUBE SCH (08:12)
[2021-10-17] MEDS: Aspirin 325 MG TAB PER TUBE SCH (08:12)
[2021-10-17] MEDS: Lisinopril 5 MG TAB PER TUBE SCH (08:12)
[2021-10-17] MEDS: Lantiseptic Ointment 130 GM JAR TOP SCH ×2 (08:13→21:58)
[2021-10-17 13:52] LABS: ALT (SGPT) 28 U/L (8-55); AST (SGOT) 22 U/L (5-34); Alkaline Phosphatase 73 U/L (40-110); Anion Gap 16 mmol/L (10-20); BUN (Urea Nitrogen) 21 mg/dL (9.8-20.1); Bilirubin, Total 0.7 mg/dL (0.2-1.2); Calc. Creatinine Clearance 79 mL/min (70-130); Calcium 8.8 mg/dL (7.8-10.44); Carbon Dioxide 24 mmol/L (23-31); Chloride 94 mmol/L (98-107); Globulin 2.9 g/dL (2.4-3.5); Glucose 96 mg/dL (83-110); Potassium 4.6 mmol/L (3.5-5.1); Protein, Total 6.9 g/dL (5.8-8.1); Sodium 129 mmol/L (136-145)
[2021-10-17 14:06] LABS: #Basophils 0.2 thou/uL (0.0-0.2); #Lymphocytes 0.6 thou/uL (1.20-3.40); #Monocytes 0.7 thou/uL (0.11-0.59); #Neutrophils 5.1 thou/uL (1.40-6.50); %Basophils 2.4 % (0.0-1.0); %Eosinophils 0.6 % (0.0-10.0); %Lymphocytes 8.7 % (21.0-51.0); %Neutrophils 77.3 % (42.0-75.0); Mean Corpuscular HGB CONC 31.3 g/dL (32.0-36.0); Mean Corpuscular Hemoglobin 31.1 pg (27.0-31.0); Mean Corpuscular Volume 99.2 fL (78.0-98.0); Mean Platelet Volume 9.2 fL (7.4-10.4); Platelet Count 317 thou/uL (130-400); RBC Distribution Width 23.5 % (11.5-14.5); Red Blood Cell (RBC) Count 3.21 mill/uL (4.20-5.40); White Blood Cell (WBC) Count 6.6 thou/uL (4.8-10.8)
[2021-10-17 14:20] LABS: Anisocytosis SLIGHT = 6-15 cells (100X) (0-5/hpf); Platelet Morphology Comment Appears Adequate
[2021-10-17 15:54] LABS: SARS-CoV-2 PCR by NAA Not Detected (NotDetected)
[2021-10-17] MEDS ORDERED: Furosemide 40 MG TAB PER TUBE SCH (17:00)
[2021-10-17] MEDS: Atorvastatin Calcium 40 MG TAB PER TUBE SCH (21:56)
[2021-10-17] MEDS: Levothyroxine Sodium 25 MCG TAB PER TUBE SCH (21:56)
[2021-10-18] MEDS: Ondansetron ODT 4 MG TAB PO PRN (06:08)
[2021-10-18] MEDS: Enoxaparin Sodium 40 MG/0.4 ML SYRINGE SC SCH (08:44)
[2021-10-18] MEDS: Amlodipine 5 MG TAB PER TUBE SCH (08:44)
[2021-10-18] MEDS: Aspirin 325 MG TAB PER TUBE SCH (08:45)
[2021-10-18] MEDS: metFORMIN 500 MG TAB PER TUBE SCH ×2 (08:45→20:26)
[2021-10-18] MEDS: Amiodarone 200 MG TAB PER TUBE SCH ×2 (08:45→20:25)
[2021-10-18] MEDS: Pantoprazole 40 MG GRANULES PACKET PER TUBE SCH (08:45)
[2021-10-18] MEDS: Furosemide 20 MG TAB PER TUBE SCH ×2 (08:45→13:24)
[2021-10-18] MEDS: Lisinopril 5 MG TAB PER TUBE SCH (08:45)
[2021-10-18] MEDS: Lantiseptic Ointment 130 GM JAR TOP SCH ×2 (08:46→20:27)
[2021-10-18] MEDS ORDERED: Sodium Chloride 1 GM TAB PER TUBE SCH ×2 (09:00→14:00)
[2021-10-18] MEDS: Metamucil PACK PER TUBE SCH (10:48)
[2021-10-18] MEDS: Levothyroxine Sodium 25 MCG TAB PER TUBE SCH (20:25)
[2021-10-18] MEDS: Atorvastatin Calcium 40 MG TAB PER TUBE SCH (20:25)
[2021-10-18] MEDS: Acetaminophen 325 MG TAB PER TUBE PRN (20:30)
[2021-10-19] MEDS: Enoxaparin Sodium 40 MG/0.4 ML SYRINGE SC SCH (08:38)
[2021-10-19] MEDS: Sodium Chloride 1 GM TAB PER TUBE SCH (08:38)
[2021-10-19] MEDS: Amlodipine 5 MG TAB PER TUBE SCH (08:38)
[2021-10-19] MEDS: Metamucil PACK PER TUBE SCH (08:39)
[2021-10-19] MEDS: metFORMIN 500 MG TAB PER TUBE SCH ×2 (08:39→21:53)
[2021-10-19] MEDS: Pantoprazole 40 MG GRANULES PACKET PER TUBE SCH (08:39)
[2021-10-19] MEDS: Furosemide 20 MG TAB PER TUBE SCH ×2 (08:39→14:53)
[2021-10-19] MEDS: Aspirin 325 MG TAB PER TUBE SCH (08:39)
[2021-10-19] MEDS: Amiodarone 200 MG TAB PER TUBE SCH ×2 (08:39→21:53)
[2021-10-19] MEDS: Lantiseptic Ointment 130 GM JAR TOP SCH ×2 (08:40→21:54)
[2021-10-19] MEDS: Lisinopril 5 MG TAB PER TUBE SCH (08:41)
[2021-10-19] MEDS: Acetaminophen 325 MG TAB PER TUBE PRN (21:53)
[2021-10-19] MEDS: Atorvastatin Calcium 40 MG TAB PER TUBE SCH (21:53)
[2021-10-19] MEDS: Levothyroxine Sodium 25 MCG TAB PER TUBE SCH (21:53)
[2021-10-20] MEDS: Enoxaparin Sodium 40 MG/0.4 ML SYRINGE SC SCH (09:24)
[2021-10-20] MEDS: Amiodarone 200 MG TAB PER TUBE SCH ×2 (09:25→21:46)
[2021-10-20] MEDS: Lantiseptic Ointment 130 GM JAR TOP SCH ×2 (09:25→21:47)
[2021-10-20] MEDS: Lisinopril 5 MG TAB PER TUBE SCH (09:25)
[2021-10-20] MEDS: Amlodipine 5 MG TAB PER TUBE SCH (09:25)
[2021-10-20] MEDS: Furosemide 20 MG TAB PER TUBE SCH ×2 (09:25→14:51)
[2021-10-20] MEDS: Aspirin 325 MG TAB PER TUBE SCH (09:25)
[2021-10-20] MEDS: Sodium Chloride 1 GM TAB PER TUBE SCH (09:26)
[2021-10-20] MEDS: metFORMIN 500 MG TAB PER TUBE SCH ×2 (09:26→21:46)
[2021-10-20] MEDS: Pantoprazole 40 MG GRANULES PACKET PER TUBE SCH (09:26)
[2021-10-20] MEDS: Metamucil PACK PER TUBE SCH (11:58)
[2021-10-20 13:05] LABS: Anion Gap 18 mmol/L (10-20); BUN (Urea Nitrogen) 15 mg/dL (9.8-20.1); Calc. Creatinine Clearance 71 mL/min (70-130); Calcium 8.7 mg/dL (7.8-10.44); Carbon Dioxide 26 mmol/L (23-31); Chloride 91 mmol/L (98-107); Glucose 153 mg/dL (83-110); Potassium 3.6 mmol/L (3.5-5.1); Sodium 131 mmol/L (136-145)
[2021-10-20 13:07] LABS: #Basophils 0.1 thou/uL (0.0-0.2); #Lymphocytes 0.6 thou/uL (1.20-3.40); #Monocytes 0.7 thou/uL (0.11-0.59); %Basophils 1.3 % (0.0-1.0); %Eosinophils 0.4 % (0.0-10.0); %Monocytes 10.4 % (0.0-10.0); %Neutrophils 78.9 % (42.0-75.0); Anisocytosis SLIGHT = 6-15 cells (100X) (0-5/hpf); Hemoglobin 10.8 g/dL (12.0-16.0); Hypochromia SLIGHT = 6-15 cells (100X) (0-5/hpf); MDiff Complete? YES; Mean Corpuscular HGB CONC 31.3 g/dL (32.0-36.0); Mean Corpuscular Hemoglobin 31.2 pg (27.0-31.0); Mean Corpuscular Volume 99.5 fL (78.0-98.0); Mean Platelet Volume 7.9 fL (7.4-10.4); Platelet Count 309 thou/uL (130-400); Polychromasia SLIGHT = 2-3 cells (100X) (0-2/hpf); Red Blood Cell (RBC) Count 3.47 mill/uL (4.20-5.40); White Blood Cell (WBC) Count 6.4 thou/uL (4.8-10.8)
[2021-10-20] MEDS: Atorvastatin Calcium 40 MG TAB PER TUBE SCH (21:46)
[2021-10-20] MEDS: Levothyroxine Sodium 25 MCG TAB PER TUBE SCH (21:46)
[2021-10-20] MEDS: Ondansetron ODT 4 MG TAB PO PRN (23:49)
[2021-10-21] MEDS: metFORMIN 500 MG TAB PER TUBE SCH ×2 (09:52→21:11)
[2021-10-21] MEDS: Amlodipine 5 MG TAB PER TUBE SCH (09:52)
[2021-10-21] MEDS: Lisinopril 5 MG TAB PER TUBE SCH (09:52)
[2021-10-21] MEDS: Amiodarone 200 MG TAB PER TUBE SCH ×2 (09:52→21:11)
[2021-10-21] MEDS: Sodium Chloride 1 GM TAB PER TUBE SCH (09:52)
[2021-10-21] MEDS: Aspirin 325 MG TAB PER TUBE SCH (09:52)
[2021-10-21] MEDS: Furosemide 20 MG TAB PER TUBE SCH ×2 (09:52→12:49)
[2021-10-21] MEDS: Enoxaparin Sodium 40 MG/0.4 ML SYRINGE SC SCH (09:53)
[2021-10-21] MEDS: Lansoprazole 3 MG/ML ORAL SUSPENSION PER TUBE SCH (09:53)
[2021-10-21] MEDS: Lantiseptic Ointment 130 GM JAR TOP SCH ×2 (09:54→21:11)
[2021-10-21] MEDS: Metamucil PACK PER TUBE SCH (12:48)
[2021-10-21] MEDS: Atorvastatin Calcium 40 MG TAB PER TUBE SCH (21:11)
[2021-10-21] MEDS: Levothyroxine Sodium 25 MCG TAB PER TUBE SCH (21:11)
[2021-10-21] MEDS: HYDROcodone/Acetaminophen 5/325 mg Tablet PER TUBE PRN (21:13)
[2021-10-22] MEDS: Aspirin 325 MG TAB PER TUBE SCH (09:03)
[2021-10-22] MEDS: Lisinopril 5 MG TAB PER TUBE SCH (09:03)
[2021-10-22] MEDS: metFORMIN 500 MG TAB PER TUBE SCH ×2 (09:03→21:42)
[2021-10-22] MEDS: Amlodipine 5 MG TAB PER TUBE SCH (09:03)
[2021-10-22] MEDS: Enoxaparin Sodium 40 MG/0.4 ML SYRINGE SC SCH (09:05)
[2021-10-22] MEDS: Furosemide 20 MG TAB PER TUBE SCH ×2 (09:05→14:09)
[2021-10-22] MEDS: Amiodarone 200 MG TAB PER TUBE SCH ×2 (09:05→21:42)
[2021-10-22] MEDS: Sodium Chloride 1 GM TAB PER TUBE SCH (09:05)
[2021-10-22] MEDS: Lantiseptic Ointment 130 GM JAR TOP SCH ×2 (09:06→21:42)
[2021-10-22] MEDS: Lansoprazole 3 MG/ML ORAL SUSPENSION PER TUBE SCH (09:11)
[2021-10-22] MEDS: Metamucil PACK PER TUBE SCH (12:05)
[2021-10-22] MEDS: HYDROcodone/Acetaminophen 5/325 mg Tablet PER TUBE PRN (14:16)
[2021-10-22] MEDS: Levothyroxine Sodium 25 MCG TAB PER TUBE SCH (21:42)
[2021-10-22] MEDS: Atorvastatin Calcium 40 MG TAB PER TUBE SCH (21:42)
[2021-10-23] MEDS: Furosemide 20 MG TAB PER TUBE SCH ×2 (08:47→13:47)
[2021-10-23] MEDS: Lansoprazole 3 MG/ML ORAL SUSPENSION PER TUBE SCH (08:47)
[2021-10-23] MEDS: metFORMIN 500 MG TAB PER TUBE SCH ×2 (08:47→22:53)
[2021-10-23] MEDS: Amiodarone 200 MG TAB PER TUBE SCH ×2 (08:48→22:53)
[2021-10-23] MEDS: Sodium Chloride 1 GM TAB PER TUBE SCH (08:48)
[2021-10-23] MEDS: Aspirin 325 MG TAB PER TUBE SCH (08:48)
[2021-10-23] MEDS: Lisinopril 5 MG TAB PER TUBE SCH (08:48)
[2021-10-23] MEDS: Amlodipine 5 MG TAB PER TUBE SCH (08:48)
[2021-10-23] MEDS: Enoxaparin Sodium 40 MG/0.4 ML SYRINGE SC SCH (08:48)
[2021-10-23] MEDS: Lantiseptic Ointment 130 GM JAR TOP SCH ×2 (08:49→23:09)
[2021-10-23] MEDS: Metamucil PACK PER TUBE SCH (11:05)
[2021-10-23] MEDS: Acetaminophen 325 MG TAB PER TUBE PRN (17:26)
[2021-10-23] MEDS: Atorvastatin Calcium 40 MG TAB PER TUBE SCH (22:53)
[2021-10-23] MEDS: Levothyroxine Sodium 25 MCG TAB PER TUBE SCH (22:53)
[2021-10-23] MEDS: HYDROcodone/Acetaminophen 5/325 mg Tablet PER TUBE PRN (23:01)
[2021-10-24] MEDS: Amiodarone 200 MG TAB PER TUBE SCH ×2 (09:43→21:45)
[2021-10-24] MEDS: Aspirin 325 MG TAB PER TUBE SCH (09:43)
[2021-10-24] MEDS: Amlodipine 5 MG TAB PER TUBE SCH (09:43)
[2021-10-24] MEDS: metFORMIN 500 MG TAB PER TUBE SCH ×2 (09:44→21:45)
[2021-10-24] MEDS: Furosemide 20 MG TAB PER TUBE SCH ×2 (09:44→13:26)
[2021-10-24] MEDS: Lansoprazole 3 MG/ML ORAL SUSPENSION PER TUBE SCH (09:44)
[2021-10-24] MEDS: Enoxaparin Sodium 40 MG/0.4 ML SYRINGE SC SCH (09:44)
[2021-10-24] MEDS: Lantiseptic Ointment 130 GM JAR TOP SCH ×2 (09:44→21:47)
[2021-10-24] MEDS: Lisinopril 5 MG TAB PER TUBE SCH (09:44)
[2021-10-24] MEDS: Sodium Chloride 1 GM TAB PER TUBE SCH (09:45)
[2021-10-24] MEDS: Metamucil PACK PER TUBE SCH (13:26)
[2021-10-24 19:50] LABS: SARS-CoV-2 PCR by NAA Not Detected (NotDetected)
[2021-10-24 20:44] VITALS: BMI 26.6
[2021-10-24] MEDS: Levothyroxine Sodium 25 MCG TAB PER TUBE SCH (21:45)
[2021-10-24] MEDS: Atorvastatin Calcium 40 MG TAB PER TUBE SCH (21:46)
[2021-10-24] MEDS: Acetaminophen 325 MG TAB PER TUBE PRN (22:01)
[2021-10-25 05:37] LABS: #Basophils 0.1 thou/uL (0.0-0.2); #Eosinphils 0.1 thou/uL (0.0-0.7); #Lymphocytes 0.9 thou/uL (1.20-3.40); #Monocytes 0.9 thou/uL (0.11-0.59); #Neutrophils 6.1 thou/uL (1.40-6.50); %Basophils 1.6 % (0.0-1.0); %Eosinophils 1.1 % (0.0-10.0); %Lymphocytes 11.1 % (21.0-51.0); %Monocytes 11.3 % (0.0-10.0); %Neutrophils 74.9 % (42.0-75.0); Anisocytosis SLIGHT = 6-15 cells (100X) (0-5/hpf); Hemoglobin 11.6 g/dL (12.0-16.0); MDiff Complete? YES; Mean Corpuscular HGB CONC 31.1 g/dL (32.0-36.0); Mean Corpuscular Hemoglobin 30.7 pg (27.0-31.0); Mean Corpuscular Volume 98.8 fL (78.0-98.0); Mean Platelet Volume 7.8 fL (7.4-10.4); Platelet Count 265 thou/uL (130-400); Platelet Morphology Comment Appears Adequate; RBC Distribution Width 21.4 % (11.5-14.5); Red Blood Cell (RBC) Count 3.77 mill/uL (4.20-5.40); White Blood Cell (WBC) Count 8.1 thou/uL (4.8-10.8)
[2021-10-25 05:39] LABS: Anion Gap 16 mmol/L (10-20); BUN (Urea Nitrogen) 10 mg/dL (9.8-20.1); Calc. Creatinine Clearance 92 mL/min (70-130); Calcium 9.5 mg/dL (7.8-10.44); Carbon Dioxide 29 mmol/L (23-31); Chloride 94 mmol/L (98-107); Glucose 93 mg/dL (83-110); Potassium 3.7 mmol/L (3.5-5.1); Sodium 135 mmol/L (136-145)
[2021-10-25] MEDS: Amiodarone 200 MG TAB PER TUBE SCH ×2 (10:00→20:59)
[2021-10-25] MEDS: Enoxaparin Sodium 40 MG/0.4 ML SYRINGE SC SCH (10:00)
[2021-10-25] MEDS: Lansoprazole 3 MG/ML ORAL SUSPENSION PER TUBE SCH (10:00)
[2021-10-25] MEDS: metFORMIN 500 MG TAB PER TUBE SCH ×2 (10:00→20:59)
[2021-10-25] MEDS: Amlodipine 5 MG TAB PER TUBE SCH (10:00)
[2021-10-25] MEDS: Sodium Chloride 1 GM TAB PER TUBE SCH (10:00)
[2021-10-25] MEDS: Lisinopril 5 MG TAB PER TUBE SCH (10:01)
[2021-10-25] MEDS: Furosemide 20 MG TAB PER TUBE SCH ×2 (10:01→13:41)
[2021-10-25] MEDS: Lantiseptic Ointment 130 GM JAR TOP SCH ×2 (10:02→21:00)
[2021-10-25] MEDS: Aspirin 325 MG TAB PER TUBE SCH (10:02)
[2021-10-25] MEDS: Metamucil PACK PER TUBE SCH (13:41)
[2021-10-25] MEDS: Acetaminophen 325 MG TAB PER TUBE PRN (20:59)
[2021-10-25] MEDS: Levothyroxine Sodium 25 MCG TAB PER TUBE SCH (20:59)
[2021-10-25] MEDS: Atorvastatin Calcium 40 MG TAB PER TUBE SCH (21:02)
[2021-10-26] MEDS: Acetaminophen 325 MG TAB PER TUBE PRN ×2 (04:26→21:52)
[2021-10-26] MEDS: Amlodipine 5 MG TAB PER TUBE SCH (11:25)
[2021-10-26] MEDS: Sodium Chloride 1 GM TAB PER TUBE SCH (11:25)
[2021-10-26] MEDS: Lansoprazole 3 MG/ML ORAL SUSPENSION PER TUBE SCH (11:25)
[2021-10-26] MEDS: Furosemide 20 MG TAB PER TUBE SCH ×2 (11:25→14:36)
[2021-10-26] MEDS: metFORMIN 500 MG TAB PER TUBE SCH ×2 (11:26→21:52)
[2021-10-26] MEDS: Amiodarone 200 MG TAB PER TUBE SCH ×2 (11:26→21:53)
[2021-10-26] MEDS: Lisinopril 5 MG TAB PER TUBE SCH (11:26)
[2021-10-26] MEDS: Enoxaparin Sodium 40 MG/0.4 ML SYRINGE SC SCH (11:27)
[2021-10-26] MEDS: Aspirin 325 MG TAB PER TUBE SCH (11:27)
[2021-10-26] MEDS: Metamucil PACK PER TUBE SCH (11:27)
[2021-10-26] MEDS: Lantiseptic Ointment 130 GM JAR TOP SCH ×2 (11:28→21:53)
[2021-10-26] MEDS: Levothyroxine Sodium 25 MCG TAB PER TUBE SCH (21:52)
[2021-10-26] MEDS: Atorvastatin Calcium 40 MG TAB PER TUBE SCH (21:53)
[2021-10-27] MEDS: Sodium Chloride 1 GM TAB PER TUBE SCH (08:53)
[2021-10-27] MEDS: Enoxaparin Sodium 40 MG/0.4 ML SYRINGE SC SCH (08:53)
[2021-10-27] MEDS: Amlodipine 5 MG TAB PER TUBE SCH (08:53)
[2021-10-27] MEDS: Amiodarone 200 MG TAB PER TUBE SCH ×2 (08:53→20:49)
[2021-10-27] MEDS: Aspirin 325 MG TAB PER TUBE SCH (08:53)
[2021-10-27] MEDS: Furosemide 20 MG TAB PER TUBE SCH ×2 (08:54→13:22)
[2021-10-27] MEDS: Lansoprazole 3 MG/ML ORAL SUSPENSION PER TUBE SCH (08:54)
[2021-10-27] MEDS: Lisinopril 5 MG TAB PER TUBE SCH (08:54)
[2021-10-27] MEDS: metFORMIN 500 MG TAB PER TUBE SCH ×2 (08:54→20:49)
[2021-10-27] MEDS: Lantiseptic Ointment 130 GM JAR TOP SCH ×2 (08:54→20:50)
[2021-10-27] MEDS: Acetaminophen 325 MG TAB PER TUBE PRN ×2 (08:58→20:48)
[2021-10-27] MEDS: Metamucil PACK PER TUBE SCH (12:21)
[2021-10-27] MEDS: Levothyroxine Sodium 25 MCG TAB PER TUBE SCH (20:49)
[2021-10-27] MEDS: Atorvastatin Calcium 40 MG TAB PER TUBE SCH (20:49)
[2021-10-28 07:56] VITALS: TEMP 98.5
[2021-10-28] MEDS: Acetaminophen 325 MG TAB PER TUBE PRN (08:55)
[2021-10-28] MEDS: Enoxaparin Sodium 40 MG/0.4 ML SYRINGE SC SCH (08:56)
[2021-10-28] MEDS: Lansoprazole 3 MG/ML ORAL SUSPENSION PER TUBE SCH (08:56)
[2021-10-28] MEDS: Sodium Chloride 1 GM TAB PER TUBE SCH (08:57)
[2021-10-28] MEDS: metFORMIN 500 MG TAB PER TUBE SCH (08:57)
[2021-10-28] MEDS: Amlodipine 5 MG TAB PER TUBE SCH (08:57)
[2021-10-28] MEDS: Furosemide 20 MG TAB PER TUBE SCH (08:57)
[2021-10-28] MEDS: Aspirin 325 MG TAB PER TUBE SCH (08:57)
[2021-10-28] MEDS: Amiodarone 200 MG TAB PER TUBE SCH (08:57)
[2021-10-28] MEDS: Lisinopril 5 MG TAB PER TUBE SCH (08:57)
[2021-10-28 08:58] VITALS: BP 145/67
[2021-10-28] MEDS: Lantiseptic Ointment 130 GM JAR TOP SCH (08:58)
[2021-10-28] MEDS: Metamucil PACK PER TUBE SCH (14:05)
== END 2021-10-28 14:02 | DRG 56 ==
LOC: UNDOADMIN 16:52 → MADMS 16:52
PROVIDERS: ADMIT Family Medicine; ATTEND Family Medicine
DX: I69.354 Hemiplegia and hemiparesis following cerebral infarction affecting left non-dominant side (principal); J69.0 Pneumonitis due to inhalation of food and vomit; J90 Pleural effusion, not elsewhere classified; E87.1 Hypo-osmolality and hyponatremia; R13.10 Dysphagia, unspecified; I10 Essential (primary) hypertension; E11.9 Type 2 diabetes mellitus without complications; E03.9 Hypothyroidism, unspecified; F41.9 Anxiety disorder, unspecified; G89.29 Other chronic pain; J45.909 Unspecified asthma, uncomplicated; I48.0 Paroxysmal atrial fibrillation; Z96.642 Presence of left artificial hip joint; F17.210 Nicotine dependence, cigarettes, uncomplicated; R53.81 Other malaise; R19.7 Diarrhea, unspecified; Z20.822 Contact with and (suspected) exposure to COVID-19; Z93.1 Gastrostomy status; I69.391 Dysphagia following cerebral infarction
CPT/HCPCS: 36415; 36416; 71045; 80048; 80053; 83880; 85025; 94640; J1650; J7620; Q0162; U0002; U0003; U0005

== ENCOUNTER 2021-12-13 12:33 | Outpatient (CLI) | payer OTHER, MEDICAID ==
[2021-12-13 13:24] LABS: Bilirubin Negative (Negative); Blood, Urine Moderate (Negative); Clarity Slightly Cloudy (Clear); Glucose, Urine (Dipstick) Negative (Negative); Ketone, Urine Trace mg/dL (Negative); Leukocyte Small (Negative); Nitrite Negative (Negative); Protein, Urine (Dipstick) 30 mg/dL (Neg-Trace); Specific Gravity, Urine 1.015 (1.005-1.030); Urobilinogen 0.2 mg/dL (Less than 2)
[2021-12-13 13:32] LABS: WBC/HPF Greater than 50 HPF (0-3)
[2021-12-13 13:33] LABS: Bacteria/HPF 2+ HPF (None Seen); Squamous Epithelial 0-3 HPF (0-3)
== END 2021-12-13 12:34 | disposition home or self-care (01) ==
LOC: MADLAB 12:33
PROVIDERS: ATTEND Family Medicine
DX: N39.0 Urinary tract infection, site not specified (principal)
CPT/HCPCS: 81003; 81015; 87077; 87086; 87186

== ENCOUNTER 2021-12-15 04:34 | Emergency (ER) | payer OTHER, MEDICAID ==
[2021-12-15] MEDS ORDERED: HYDROcodone/Acetaminophen 5/325 mg Tablet ONE (06:57)
== END 2021-12-15 07:05 | disposition home or self-care (01) ==
LOC: MADERS 04:34
DX: S22.32XA Fracture of one rib, left side, initial encounter for closed fracture (principal); T14.8XXA Other injury of unspecified body region, initial encounter; I10 Essential (primary) hypertension; E11.9 Type 2 diabetes mellitus without complications; E03.9 Hypothyroidism, unspecified; I48.91 Unspecified atrial fibrillation; E78.5 Hyperlipidemia, unspecified; M81.0 Age-related osteoporosis without current pathological fracture; I25.10 Atherosclerotic heart disease of native coronary artery without angina pectoris; J45.909 Unspecified asthma, uncomplicated; M06.9 Rheumatoid arthritis, unspecified; G47.00 Insomnia, unspecified; F17.210 Nicotine dependence, cigarettes, uncomplicated; W06.XXXA Fall from bed, initial encounter; Z86.73 Personal history of transient ischemic attack (TIA), and cerebral infarction without residual deficits; Z79.84 Long term (current) use of oral hypoglycemic drugs; Z79.899 Other long term (current) drug therapy
CPT/HCPCS: 70450; 71250; 72125

== ENCOUNTER 2021-12-18 00:29 | Inpatient (IN) | payer OTHER, MEDICAID ==
[2021-12-18 02:12] LABS: Hemoglobin 12.9 g/dL (12.0-16.0); Mean Corpuscular HGB CONC 31.4 g/dL (32.0-36.0); Mean Corpuscular Volume 92.6 fL (78.0-98.0); Mean Platelet Volume 9.8 fL (7.4-10.4); Platelet Count 367 thou/uL (130-400); RBC Distribution Width 19.1 % (11.5-14.5); Red Blood Cell (RBC) Count 4.43 mill/uL (4.20-5.40); White Blood Cell (WBC) Count 12.6 thou/uL (4.8-10.8)
[2021-12-18 02:19] LABS: ALT (SGPT) 21 U/L (8-55); AST (SGOT) 18 U/L (5-34); Albumin 3.9 g/dL (3.4-4.8); Alkaline Phosphatase 149 U/L (40-110); Anion Gap 18 mmol/L (10-20); BUN (Urea Nitrogen) 15 mg/dL (9.8-20.1); Bilirubin, Total 0.7 mg/dL (0.2-1.2); Calc. Creatinine Clearance 0 mL/min (70-130); Calcium 9.2 mg/dL (7.8-10.44); Carbon Dioxide 25 mmol/L (23-31); Chloride 100 mmol/L (98-107); Estimated GFR 78; Globulin 3.6 g/dL (2.4-3.5); Glucose 124 mg/dL (83-110); Lipase 14 U/L (8-78); Magnesium 1.3 mg/dL (1.6-2.6); Potassium 3.9 mmol/L (3.5-5.1); Protein, Total 7.5 g/dL (5.8-8.1); Sodium 139 mmol/L (136-145)
[2021-12-18 02:38] LABS: #Basophils 0.2 thou/uL (0.0-0.2); #Eosinphils 0.1 thou/uL (0.0-0.7); #Lymphocytes 1.5 thou/uL (1.20-3.40); #Monocytes 1.1 thou/uL (0.11-0.59); #Neutrophils 9.7 thou/uL (1.40-6.50); %Basophils 1.2 % (0.0-1.0); %Eosinophils 1.1 % (0.0-10.0); %Lymphocytes 12.1 % (21.0-51.0); %Monocytes 8.5 % (0.0-10.0); %Neutrophils 77.1 % (42.0-75.0); Platelet Morphology Comment Appears Adequate; RBC Morphology Normal
[2021-12-18 02:41] LABS: MDiff Complete? YES
[2021-12-18 04:29] LABS: Bilirubin Negative (Negative); Blood, Urine Trace (Negative); Clarity Clear (Clear); Glucose, Urine (Dipstick) Negative (Negative); Ketone, Urine Negative (Negative); Leukocyte Trace (Negative); Nitrite Positive (Negative); Protein, Urine (Dipstick) Negative (Neg-Trace); Urobilinogen 0.2 mg/dL (Less than 2)
[2021-12-18 04:37] LABS: Bacteria/HPF 1+ HPF (None Seen); Mucous/LPF Rare LPF (<2+); RBC/HPF 0-3 HPF (0-3)
[2021-12-18] MEDS ORDERED: cefTRIAXone\\ROCEPHIN 2 GM VIAL ONE (05:47)
[2021-12-18] MEDS ORDERED: Sodium Chloride 0.9% 100 ML ONE (05:56)
[2021-12-18] MEDS ORDERED: Sodium Chloride 0.9% 250 ML 250 ML ONE (05:56)
[2021-12-18] MEDS ORDERED: Azithromycin 500 MG VIAL ONE (05:56)
[2021-12-18] MEDS ORDERED: Magnesium 2 GM/50 ML BAG (IN WATER) ONE (06:23)
[2021-12-18 07:04] LABS: SARS-CoV-2 NAA Rapid Test Not Detected (NotDetected)
[2021-12-18] MEDS ORDERED: HYDROcodone/Acetaminophen 5/325 mg Tablet ONE (07:28)
[2021-12-18] MEDS ORDERED: Iopamidol 370 76% 100 ML VIAL ONE (08:14)
[2021-12-18 09:30] VITALS: BMI 23.9
[2021-12-18] MEDS ORDERED: ALPRAZolam 0.25 MG TAB PO PRN (11:51)
[2021-12-18] MEDS: HYDROcodone/Acetaminophen 5/325 mg Tablet PO PRN (15:17)
[2021-12-18] MEDS: metFORMIN 500 MG TAB PO SCH (17:12)
[2021-12-18] MEDS ORDERED: Polyethylene Glycol 3350 17 GM Packet PO SCH (20:00)
[2021-12-18] MEDS: Amiodarone 200 MG TAB PO SCH (20:42)
[2021-12-18] MEDS: Furosemide 20 MG TAB PO SCH (20:42)
[2021-12-18] MEDS: Enoxaparin Sodium 40 MG/0.4 ML SYRINGE SC SCH (21:09)
[2021-12-18] MEDS: Acetaminophen 500 MG TAB PO PRN (22:01)
[2021-12-19] MEDS: Levothyroxine Sodium 25 MCG TAB PO SCH (05:44)
[2021-12-19] MEDS: HYDROcodone/Acetaminophen 5/325 mg Tablet PO PRN ×4 (05:45→22:33)
[2021-12-19] MEDS: cefTRIAXone\\ROCEPHIN 1 GM in Sodium Chloride 0.9% 100 ML IVPB SCH (05:45)
[2021-12-19] MEDS ORDERED: Azithromycin 250 MG TAB PO SCH (08:00)
[2021-12-19] MEDS: Montelukast Sodium 10 mg Tablet PO SCH (08:52)
[2021-12-19] MEDS: metFORMIN 500 MG TAB PO SCH ×2 (08:52→16:49)
[2021-12-19] MEDS: Azithromycin 250 MG TAB PO SCH (08:52)
[2021-12-19] MEDS: Sodium Chloride 1 GM TAB PO SCH (08:53)
[2021-12-19] MEDS: Aspirin 325 MG TAB PO SCH (08:53)
[2021-12-19] MEDS: Furosemide 20 MG TAB PO SCH ×2 (08:53→21:52)
[2021-12-19] MEDS: Amlodipine 5 MG TAB PO SCH (08:53)
[2021-12-19] MEDS: Amiodarone 200 MG TAB PO SCH ×2 (08:54→21:52)
[2021-12-19] MEDS: Lisinopril 5 MG TAB PO SCH (08:54)
[2021-12-19] MEDS ORDERED: Enoxaparin Sodium 40 MG/0.4 ML SYRINGE SC SCH (09:00)
[2021-12-19] MEDS ORDERED: Temazepam 15 MG CAP PO PRN (10:03)
[2021-12-19 10:11] LABS: Anion Gap 17 mmol/L (10-20); BUN (Urea Nitrogen) 14 mg/dL (9.8-20.1); Calc. Creatinine Clearance 63 mL/min (70-130); Carbon Dioxide 26 mmol/L (23-31); Chloride 102 mmol/L (98-107); Estimated GFR 86; Glucose 139 mg/dL (83-110); Magnesium 1.7 mg/dL (1.6-2.6); Potassium 3.5 mmol/L (3.5-5.1); Sodium 141 mmol/L (136-145)
[2021-12-19 10:18] LABS: Anisocytosis SLIGHT = 6-15 cells (100X) (0-5/hpf); Band 1 % (5-11); Hemoglobin 11.4 g/dL (12.0-16.0); Lymphocytes 2 % (21-51); MDiff Complete? YES; Mean Corpuscular HGB CONC 33.1 g/dL (32.0-36.0); Mean Corpuscular Hemoglobin 30.4 pg (27.0-31.0); Mean Corpuscular Volume 91.7 fL (78.0-98.0); Mean Platelet Volume 9.2 fL (7.4-10.4); Metamyelocyte 1 % (0-0); Monocytes 4 % (0-10); Myelocyte 1 % (0-0); Neutrophil 90 % (42-75); Platelet Count 329 thou/uL (130-400); Platelet Morphology Comment Appears Adequate; Polychromasia SLIGHT = 2-3 cells (100X) (0-2/hpf); RBC Distribution Width 18.8 % (11.5-14.5); Reactive Lymphocytes 1 % (0-10); Red Blood Cell (RBC) Count 3.76 mill/uL (4.20-5.40); White Blood Cell (WBC) Count 21.5 thou/uL (4.8-10.8)
[2021-12-19] MEDS: Enoxaparin Sodium 40 MG/0.4 ML SYRINGE SC SCH (21:52)
[2021-12-19] MEDS: Polyethylene Glycol 3350 17 GM Packet PO SCH (22:22)
[2021-12-20] MEDS: Levothyroxine Sodium 25 MCG TAB PO SCH (05:52)
[2021-12-20] MEDS: cefTRIAXone\\ROCEPHIN 1 GM in Sodium Chloride 0.9% 100 ML IVPB SCH (05:52)
[2021-12-20 05:54] LABS: #Basophils 0.1 thou/uL (0.0-0.2); #Eosinphils 0.2 thou/uL (0.0-0.7); #Lymphocytes 2.1 thou/uL (1.20-3.40); #Monocytes 1.1 thou/uL (0.11-0.59); #Neutrophils 13.1 thou/uL (1.40-6.50); %Basophils 0.9 % (0.0-1.0); %Eosinophils 1.1 % (0.0-10.0); %Lymphocytes 12.5 % (21.0-51.0); %Monocytes 6.8 % (0.0-10.0); %Neutrophils 78.6 % (42.0-75.0); Anisocytosis SLIGHT = 6-15 cells (100X) (0-5/hpf); Hemoglobin 10.5 g/dL (12.0-16.0); MDiff Complete? YES; Mean Corpuscular Hemoglobin 30.8 pg (27.0-31.0); Mean Corpuscular Volume 90.7 fL (78.0-98.0); Mean Platelet Volume 9.6 fL (7.4-10.4); Ovalocytes SLIGHT = 2-5 cells (100X) (0-1/hpf); Platelet Count 313 thou/uL (130-400); Platelet Morphology Comment Appears Adequate; RBC Distribution Width 20.1 % (11.5-14.5); Red Blood Cell (RBC) Count 3.42 mill/uL (4.20-5.40); White Blood Cell (WBC) Count 16.7 thou/uL (4.8-10.8)
[2021-12-20] MEDS: Montelukast Sodium 10 mg Tablet PO SCH (08:14)
[2021-12-20] MEDS: Amlodipine 5 MG TAB PO SCH (08:14)
[2021-12-20] MEDS: Aspirin 325 MG TAB PO SCH (08:14)
[2021-12-20] MEDS: Senokot S 8.6-50 MG TAB PO PRN (08:14)
[2021-12-20] MEDS: metFORMIN 500 MG TAB PO SCH ×2 (08:14→16:59)
[2021-12-20] MEDS: Lisinopril 5 MG TAB PO SCH (08:15)
[2021-12-20] MEDS: Amiodarone 200 MG TAB PO SCH ×2 (08:15→21:18)
[2021-12-20] MEDS: Furosemide 20 MG TAB PO SCH ×2 (08:16→21:18)
[2021-12-20] MEDS: Azithromycin 250 MG TAB PO SCH (08:16)
[2021-12-20] MEDS: Sodium Chloride 1 GM TAB PO SCH (08:16)
[2021-12-20] MEDS: Acetaminophen 500 MG TAB PO PRN (16:58)
[2021-12-20] MEDS: Polyethylene Glycol 3350 17 GM Packet PO SCH (21:18)
[2021-12-20] MEDS: Enoxaparin Sodium 40 MG/0.4 ML SYRINGE SC SCH (21:18)
[2021-12-20] MEDS: HYDROcodone/Acetaminophen 5/325 mg Tablet PO PRN (21:22)
[2021-12-21] MEDS: Levothyroxine Sodium 25 MCG TAB PO SCH (06:12)
[2021-12-21] MEDS: cefTRIAXone\\ROCEPHIN 1 GM in Sodium Chloride 0.9% 100 ML IVPB SCH (06:12)
[2021-12-21] MEDS: metFORMIN 500 MG TAB PO SCH ×2 (08:28→16:58)
[2021-12-21] MEDS: Aspirin 325 MG TAB PO SCH (08:28)
[2021-12-21] MEDS: Lisinopril 5 MG TAB PO SCH (08:28)
[2021-12-21] MEDS: Amlodipine 5 MG TAB PO SCH (08:28)
[2021-12-21] MEDS: Azithromycin 250 MG TAB PO SCH (08:28)
[2021-12-21] MEDS: Amiodarone 200 MG TAB PO SCH ×2 (08:28→21:20)
[2021-12-21] MEDS: Montelukast Sodium 10 mg Tablet PO SCH (08:29)
[2021-12-21] MEDS: Furosemide 20 MG TAB PO SCH ×2 (08:29→21:20)
[2021-12-21] MEDS: Sodium Chloride 1 GM TAB PO SCH (08:29)
[2021-12-21] MEDS: Senokot S 8.6-50 MG TAB PO PRN (09:53)
[2021-12-21] MEDS: Acetaminophen 500 MG TAB PO PRN (09:53)
[2021-12-21 16:23] LABS: ALT (SGPT) 15 U/L (8-55); AST (SGOT) 15 U/L (5-34); Albumin 3.5 g/dL (3.4-4.8); Alkaline Phosphatase 136 U/L (40-110); Anion Gap 18 mmol/L (10-20); BUN (Urea Nitrogen) 12 mg/dL (9.8-20.1); Bilirubin, Total 0.4 mg/dL (0.2-1.2); Calc. Creatinine Clearance 65 mL/min (70-130); Calcium 8.9 mg/dL (7.8-10.44); Carbon Dioxide 26 mmol/L (23-31); Chloride 101 mmol/L (98-107); Estimated GFR 89; Globulin 4.1 g/dL (2.4-3.5); Glucose 97 mg/dL (83-110); Protein, Total 7.6 g/dL (5.8-8.1); Sodium 142 mmol/L (136-145)
[2021-12-21 16:29] LABS: #Basophils 0.1 thou/uL (0.0-0.2); #Eosinphils 0.2 thou/uL (0.0-0.7); #Lymphocytes 2.5 thou/uL (1.20-3.40); #Monocytes 0.8 thou/uL (0.11-0.59); %Basophils 1.2 % (0.0-1.0); %Eosinophils 2.1 % (0.0-10.0); %Lymphocytes 25.7 % (21.0-51.0); %Monocytes 8.7 % (0.0-10.0); %Neutrophils 62.3 % (42.0-75.0); Hemoglobin 11.5 g/dL (12.0-16.0); MDiff Complete? YES; Mean Corpuscular HGB CONC 31.6 g/dL (32.0-36.0); Mean Corpuscular Hemoglobin 29.1 pg (27.0-31.0); Mean Corpuscular Volume 92.1 fL (78.0-98.0); Mean Platelet Volume 8.4 fL (7.4-10.4); Microcytosis SLIGHT = 6-15 cells (100X) (0-5/hpf); Platelet Count 418 thou/uL (130-400); Platelet Morphology Comment Appears Adequate; RBC Distribution Width 19.7 % (11.5-14.5); Red Blood Cell (RBC) Count 3.95 mill/uL (4.20-5.40); White Blood Cell (WBC) Count 9.6 thou/uL (4.8-10.8)
[2021-12-21 16:36] LABS: Potassium 2.9 mmol/L (3.5-5.1)
[2021-12-21] MEDS ORDERED: Potassium Chloride 20 MEQ TAB PO SCH (16:45)
[2021-12-21] MEDS: Polyethylene Glycol 3350 17 GM Packet PO SCH (21:20)
[2021-12-21] MEDS: HYDROcodone/Acetaminophen 5/325 mg Tablet PO PRN (21:20)
[2021-12-21] MEDS: Enoxaparin Sodium 40 MG/0.4 ML SYRINGE SC SCH (21:20)
[2021-12-22] MEDS: Levothyroxine Sodium 25 MCG TAB PO SCH (05:08)
[2021-12-22] MEDS: cefTRIAXone\\ROCEPHIN 1 GM in Sodium Chloride 0.9% 100 ML IVPB SCH (05:08)
[2021-12-22] MEDS: HYDROcodone/Acetaminophen 5/325 mg Tablet PO PRN (05:11)
[2021-12-22 05:28] LABS: Anion Gap 13 mmol/L (10-20); BUN (Urea Nitrogen) 10 mg/dL (9.8-20.1); Calc. Creatinine Clearance 77 mL/min (70-130); Calcium 8.1 mg/dL (7.8-10.44); Carbon Dioxide 27 mmol/L (23-31); Chloride 103 mmol/L (98-107); Estimated GFR 93; Glucose 77 mg/dL (83-110); Potassium 3.1 mmol/L (3.5-5.1); Sodium 140 mmol/L (136-145)
[2021-12-22] MEDS: Lisinopril 5 MG TAB PO SCH (08:05)
[2021-12-22] MEDS: Montelukast Sodium 10 mg Tablet PO SCH (08:21)
[2021-12-22] MEDS: Aspirin 325 MG TAB PO SCH (08:21)
[2021-12-22] MEDS: Sodium Chloride 1 GM TAB PO SCH (08:21)
[2021-12-22] MEDS: metFORMIN 500 MG TAB PO SCH (08:21)
[2021-12-22] MEDS: Furosemide 20 MG TAB PO SCH (08:21)
[2021-12-22] MEDS: Azithromycin 250 MG TAB PO SCH (08:21)
[2021-12-22] MEDS: Amiodarone 200 MG TAB PO SCH (08:21)
[2021-12-22] MEDS: Amlodipine 5 MG TAB PO SCH (08:22)
[2021-12-22] MEDS ORDERED: Potassium Chloride 20 MEQ TAB PO SCH ×2 (10:00→10:45)
[2021-12-22 12:24] VITALS: BP 145/65; TEMP 98.1
== END 2021-12-22 14:40 | DRG 193 ==
LOC: MADERS 00:29 → MADMS 07:47
PROVIDERS: ADMIT Family Medicine; ATTEND Family Medicine
DX: J18.9 Pneumonia, unspecified organism (principal); J96.00 Acute respiratory failure, unspecified whether with hypoxia or hypercapnia; S22.41XA Multiple fractures of ribs, right side, initial encounter for closed fracture; N39.0 Urinary tract infection, site not specified; I69.354 Hemiplegia and hemiparesis following cerebral infarction affecting left non-dominant side; E11.9 Type 2 diabetes mellitus without complications; E03.9 Hypothyroidism, unspecified; M81.0 Age-related osteoporosis without current pathological fracture; I10 Essential (primary) hypertension; M06.9 Rheumatoid arthritis, unspecified; E78.5 Hyperlipidemia, unspecified; J45.909 Unspecified asthma, uncomplicated; G89.29 Other chronic pain; F41.9 Anxiety disorder, unspecified; F32.A Depression, unspecified; F17.210 Nicotine dependence, cigarettes, uncomplicated; Z66 Do not resuscitate; Z20.822 Contact with and (suspected) exposure to COVID-19; W19.XXXA Unspecified fall, initial encounter; E66.01 Morbid (severe) obesity due to excess calories; I48.0 Paroxysmal atrial fibrillation; Z79.84 Long term (current) use of oral hypoglycemic drugs; Z79.4 Long term (current) use of insulin; Z98.890 Other specified postprocedural states; Z79.899 Other long term (current) drug therapy; Y92.009 Unspecified place in unspecified non-institutional (private) residence as the place of occurrence of the external cause; Z68.23 Body mass index [BMI] 23.0-23.9, adult
CPT/HCPCS: 36415; 36416; 51701; 71045; 71260; 74177; 80048; 80053; 81003; 81015; 83605; 83690; 83735; 83880; 84484; 85025; 93005; 96365; 96367; 96375; J0456; J0696; J1650; J3475; J3490; J7050; J7620; Q9967; U0002

== ENCOUNTER 2023-03-28 11:57 | Emergency (ER) | payer OTHER, MEDICAID ==
[2023-03-28 12:33] LABS: #Basophils 0.2 thou/uL (0.0-0.2); #Eosinphils 0.1 thou/uL (0.0-0.7); #Lymphocytes 1.7 thou/uL (1.20-3.40); #Monocytes 0.5 thou/uL (0.11-0.59); #Neutrophils 4.4 thou/uL (1.40-6.50); %Basophils 2.2 % (0.0-1.0); %Eosinophils 1.4 % (0.0-10.0); %Lymphocytes 24.5 % (21.0-51.0); %Monocytes 7.7 % (0.0-10.0); %Neutrophils 64.2 % (42.0-75.0); Hematocrit 32.2 % (36.0-47.0); Hemoglobin 10.6 g/dL (12.0-16.0); Mean Corpuscular HGB CONC 32.8 g/dL (32.0-36.0); Mean Corpuscular Hemoglobin 32.5 pg (27.0-31.0); Mean Platelet Volume 6.8 fL (7.4-10.4); Platelet Count 308 10x3/uL (130-400); RBC Distribution Width 17.9 % (11.5-14.5); Red Blood Cell (RBC) Count 3.25 mill/uL (4.20-5.40); White Blood Cell (WBC) Count 6.9 10x3/uL (4.8-10.8)
[2023-03-28] MEDS ORDERED: Morphine 2 MG/ML VIAL ONE (12:34)
[2023-03-28 12:51] LABS: ALT (SGPT) 8 U/L (8-55); AST (SGOT) 13 U/L (5-34); Albumin 3.6 g/dL (3.4-4.8); Alkaline Phosphatase 93 U/L (40-110); Anion Gap 18 mmol/L (10-20); BUN (Urea Nitrogen) 25 mg/dL (9.8-20.1); Bilirubin, Total 0.4 mg/dL (0.2-1.2); Calc. Creatinine Clearance 0 mL/min (70-130); Calcium 9.2 mg/dL (7.8-10.44); Carbon Dioxide 24 mmol/L (23-31); Chloride 100 mmol/L (98-107); Estimated GFR 53; Globulin 3.4 g/dL (2.4-3.5); Glucose 125 mg/dL (83-110); Potassium 3.7 mmol/L (3.5-5.1); Sodium 138 mmol/L (136-145)
[2023-03-28 12:52] LABS: Troponin I 0.017 ng/mL (< 0.028)
[2023-03-28 15:23] LABS: Bilirubin Negative (Negative); Blood, Urine Negative (Negative); Glucose, Urine (Dipstick) Negative (Negative); Ketone, Urine Negative (Negative); Leukocyte Large (Negative); Nitrite Negative (Negative); Protein, Urine (Dipstick) Negative (Neg-Trace); Specific Gravity, Urine 1.015 (1.005-1.030); Urobilinogen 0.2 mg/dL (Less than 2)
[2023-03-28 15:24] LABS: CAUTI Indications for Culture Dysuria,urgency,freq; Clarity Hazy (Clear)
[2023-03-28 15:31] LABS: Bacteria/HPF 4+ HPF (None Seen); RBC/HPF 0-3 HPF (0-3); Squamous Epithelial 0-3 HPF (0-3); WBC/HPF 21-50 HPF (0-3)
== END 2023-03-28 16:38 ==
LOC: MADERS 11:57
DX: N39.0 Urinary tract infection, site not specified (principal); R29.705 NIHSS score 5; I10 Essential (primary) hypertension; E11.9 Type 2 diabetes mellitus without complications; F17.210 Nicotine dependence, cigarettes, uncomplicated; I48.91 Unspecified atrial fibrillation; J45.909 Unspecified asthma, uncomplicated; E03.9 Hypothyroidism, unspecified; K21.9 Gastro-esophageal reflux disease without esophagitis; I25.10 Atherosclerotic heart disease of native coronary artery without angina pectoris; M81.0 Age-related osteoporosis without current pathological fracture; M06.9 Rheumatoid arthritis, unspecified; F03.90 Unspecified dementia, unspecified severity, without behavioral disturbance, psychotic disturbance, mood disturbance, and anxiety; G47.00 Insomnia, unspecified; Z79.84 Long term (current) use of oral hypoglycemic drugs; Z79.899 Other long term (current) drug therapy; Z86.73 Personal history of transient ischemic attack (TIA), and cerebral infarction without residual deficits
CPT/HCPCS: 36415; 70450; 80053; 81001; 84484; 85025; 93005; 96374; J2272

== ENCOUNTER 2024-06-01 22:38 | Emergency (ER) | payer OTHER, MEDICAID | END 2024-06-01 23:23 | LOC: MADERS 22:38 | DX: M79.675 Pain in left toe(s) (principal); E11.9 Type 2 diabetes mellitus without complications; I10 Essential (primary) hypertension; F17.210 Nicotine dependence, cigarettes, uncomplicated | CPT/HCPCS: 99283 ==